=== PATIENT | female | born 1945 | race African-American/Black ===

== ENCOUNTER 2016-12-14 15:40 | Emergency (ER) | payer MEDICARE, MEDICAID ==
[~2016-12-14] VITALS: Ht 180.3 cm; Wt 128.0 kg
[~2016-12-14 15:40] MED LIST: AMA4 PO; ARIP30TA3 PO; CARB200T6 PO; CHOL200035 PO; CLOP75TA33 PO; CYAN10009 PO; DIPH50CA4 PO; EZET10TA PO; HYDR25TA PO; INSU100I22 SQ; INSU200I SQ; LEVO50TA70 PO; LEVO5TAB13 PO; LOSA100T11 PO; MIRA25TA PO; NEBI10TA2 PO; OMEG1CAP17 PO; POTA20TA82 PO; RISP4; ROSU20TA28 PO; SPIR25TA4 PO; TOPI200T15 PO; TRAZ-132 PO
[2016-12-14] MEDS ORDERED: ONDANSETRON 4MG ODT PO ONE (20:15)
[2016-12-14] MEDS ORDERED: HYDROCODONE/ACETAMINOPHEN 5/325MG TABLET PO ONE (20:15)
[2016-12-15 00:56] VITALS: BP 132/64
== END 2016-12-15 00:57 | disposition home or self-care (01) ==
LOC: ER 19:54
DX: M16.11 Unilateral primary osteoarthritis, right hip (principal); E11.9 Type 2 diabetes mellitus without complications; I10 Essential (primary) hypertension; E78.00 Pure hypercholesterolemia, unspecified; E03.9 Hypothyroidism, unspecified; Z79.4 Long term (current) use of insulin; Z90.49 Acquired absence of other specified parts of digestive tract; Z88.0 Allergy status to penicillin; Z88.6 Allergy status to analgesic agent; Z88.2 Allergy status to sulfonamides; Z85.9 Personal history of malignant neoplasm, unspecified; Z98.890 Other specified postprocedural states; W06.XXXA Fall from bed, initial encounter; Y92.013 Bedroom of single-family (private) house as the place of occurrence of the external cause
CPT/HCPCS: 73502; 73700; 99284; Q0162

== ENCOUNTER 2017-01-10 20:25 | Emergency (ER) | payer MEDICARE, MEDICAID ==
[~2017-01-10] VITALS: Ht 160 cm; Wt 124.0 kg
[2017-01-10] MEDS ORDERED: LIDOCAINE HCL 1% 20ML VIAL (Pyxis) INJ ONE (23:23)
[2017-01-10] MEDS ORDERED: LIDOCAINE HCL 1% 20ML VIAL (Pyxis) INJ MC ONE (23:45)
[2017-01-11 00:04] VITALS: BP 133/77
== END 2017-01-11 00:08 | disposition home or self-care (01) ==
LOC: ER 20:27
DX: T82.838A Hemorrhage due to vascular prosthetic devices, implants and grafts, initial encounter (principal); Y82.8 Other medical devices associated with adverse incidents; C50.911 Malignant neoplasm of unspecified site of right female breast; Y92.098 Other place in other non-institutional residence as the place of occurrence of the external cause; I10 Essential (primary) hypertension; E11.9 Type 2 diabetes mellitus without complications; E78.00 Pure hypercholesterolemia, unspecified; Z98.890 Other specified postprocedural states; Z90.49 Acquired absence of other specified parts of digestive tract; Z88.2 Allergy status to sulfonamides; Z88.6 Allergy status to analgesic agent; Z88.7 Allergy status to serum and vaccine; Z91.018 Allergy to other foods
CPT/HCPCS: 12002; 99283; J3490

== ENCOUNTER 2017-01-26 05:20 | Emergency (ER) | payer MEDICARE, MEDICAID ==
[~2017-01-26 05:20] MED LIST changes: +ARIP30TA2 PO; -ARIP30TA3 PO; -LOSA100T11 PO; +LOSA100T3 PO
[2017-01-26] MEDS ORDERED: ONDANSETRON HCL 4MG/2ML VIAL IV STA (07:33)
[2017-01-26] MEDS ORDERED: MORPHINE SULFATE 4 MG/ML CPJ (NOT FOR IM USE) IV STA (07:33)
[2017-01-26] MEDS ORDERED: SODIUM CHLORIDE 0.9% 1,000 ML IV ONE (07:33)
[2017-01-26 07:54] LABS: CLARITY URINE CLEAR (CLEAR); COLOR URINE YELLOW (YELLOW); GLUCOSE URINE NEGATIVE (NEGATIVE); KETONES URINE NEGATIVE (NEGATIVE); LEUKOCYTE ESTERASE URINE 1+ (NEGATIVE); NITRITE URINE NEGATIVE (NEGATIVE); OCCULT BLOOD URINE NEGATIVE (NEGATIVE); PROTEIN URINE NEGATIVE (NEGATIVE); SPECIFIC GRAVITY URINE 1.014 (1.005-1.030); UROBILINOGEN URINE 0.2 E.U./dL (0.2-1.0)
[2017-01-26 08:01] LABS: BASOPHILS % 0.2 % (0.0-2.0); EOSINOPHILS % 2.1 % (0.0-5.0); HEMATOCRIT. 32.8 % (36.0-48.0); HEMOGLOBIN. 11.1 g/dL (12.0-16.0); LYMPHOCYTES % 27.8 % (20.0-50.0); MEAN CORPUSCULAR HEMOGLOBIN 30.6 pg (28.0-32.0); MEAN CORPUSCULAR VOLUME 90.2 fL (81.0-99.0); MEAN PLATELET VOLUME 9.7 fl (7.4-10.4); MONOCYTES % 10.8 % (2.0-8.0); NEUTROPHILS % 59.1 % (40.0-76.0); PLATELET 127 x1000/uL (130-400); RED BLOOD CELL COUNT 3.63 mill/uL (4.2-5.4); RED CELL DISTRIBUTION WIDTH 17.4 % (11.6-14.6)
[2017-01-26 08:13] LABS: CARBON DIOXIDE 26 mEq/L (21-32); CHLORIDE 103 mEq/L (98-107)
[2017-01-26] MEDS ORDERED: LEVOFLOXACIN 750MG PREMIX 150 ML IV ONE (10:00)
[2017-01-26 12:30] VITALS: BP 138/67
== END 2017-01-26 13:11 | disposition home or self-care (01) ==
LOC: ER 05:20
DX: N12 Tubulo-interstitial nephritis, not specified as acute or chronic (principal); N39.0 Urinary tract infection, site not specified; E11.9 Type 2 diabetes mellitus without complications; I10 Essential (primary) hypertension; E78.00 Pure hypercholesterolemia, unspecified; Z88.0 Allergy status to penicillin; Z88.6 Allergy status to analgesic agent; Z88.2 Allergy status to sulfonamides; Z79.899 Other long term (current) drug therapy
CPT/HCPCS: 36415; 74176; 80053; 81001; 83690; 85025; 96365; 96375; 99285; J1956; J2270; J2405; J7030

== ENCOUNTER 2017-03-21 06:52 | Emergency (ER) | payer MEDICARE, MEDICAID ==
[~2017-03-21] VITALS: Ht 160 cm; Wt 122.0 kg
[2017-03-21] MEDS ORDERED: SODIUM CHLORIDE 0.9% 1,000 ML IV ONE (08:07)
[2017-03-21] MEDS ORDERED: MORPHINE SULFATE 4 MG/ML CPJ (NOT FOR IM USE) IV STA (08:07)
[2017-03-21] MEDS ORDERED: ONDANSETRON HCL 4MG/2ML VIAL IV STA (08:07)
[2017-03-21 08:52] LABS: HEMOGLOBIN. 9.4 g/dL (12.0-16.0); MEAN CORPUSCULAR HEMOGLOBIN 30.9 pg (28.0-32.0); MEAN PLATELET VOLUME 9.2 fl (7.4-10.4); PLATELET 207 x1000/uL (130-400); RED BLOOD CELL COUNT 3.05 mill/uL (4.2-5.4); RED CELL DISTRIBUTION WIDTH 19.8 % (11.6-14.6)
[2017-03-21 08:58] LABS: CHLORIDE 104 mEq/L (98-107)
[2017-03-21 09:00] LABS: PARTIAL THROMBOPLASTIN TIME 29.8 sec (24.0-34.0); PROTHROMBIN TIME 10.5 sec
[2017-03-21 09:06] LABS: CARBON DIOXIDE 24 mEq/L (21-32)
[2017-03-21 09:23] LABS: NUCLEATED RED BLOOD CELLS 3 /100 WBC; PLATELET ESTIMATE NORMAL
[2017-03-21 11:37] VITALS: BP 148/60
== END 2017-03-21 11:38 | disposition home or self-care (01) ==
LOC: ER 07:41
DX: M16.11 Unilateral primary osteoarthritis, right hip (principal); I10 Essential (primary) hypertension; E11.9 Type 2 diabetes mellitus without complications; D25.9 Leiomyoma of uterus, unspecified; Z88.0 Allergy status to penicillin; Z88.2 Allergy status to sulfonamides; Z88.6 Allergy status to analgesic agent; Z88.7 Allergy status to serum and vaccine; Z88.5 Allergy status to narcotic agent; Z91.018 Allergy to other foods; Z79.4 Long term (current) use of insulin
CPT/HCPCS: 36415; 71010; 72192; 73502; 80053; 85025; 85610; 85730; 96361; 96374; 96375; 99285; J2270; J2405; J7030; 73700

== ENCOUNTER 2017-06-21 22:10 | Emergency (ER) | payer MEDICARE, MEDICAID ==
[~2017-06-21] VITALS: Ht 160 cm; Wt 122.0 kg
[~2017-06-21 22:10] MED LIST changes: +CHOL200010 PO; -CHOL200035 PO; -EZET10TA PO; +LEVO50TA PO; -LEVO50TA70 PO; +ZET10 PO
[2017-06-22] MEDS ORDERED: IBUPROFEN 600MG TABLET PO STA (01:27)
[2017-06-22] MEDS ORDERED: ACETAMINOPHEN 325MG TABLET PO ONE (01:30)
[2017-06-22 01:46] LABS: BASOPHILS % 0.3 % (0.0-2.0); EOSINOPHILS % 0.4 % (0.0-5.0); HEMATOCRIT. 36.6 % (36.0-48.0); HEMOGLOBIN. 11.9 g/dL (12.0-16.0); LYMPHOCYTES % 20.1 % (20.0-50.0); MEAN CORPUSCULAR HEMOGLOBIN 32.8 pg (28.0-32.0); MEAN CORPUSCULAR VOLUME 100.3 fL (81.0-99.0); MEAN PLATELET VOLUME 10.3 fl (7.4-10.4); MONOCYTES % 12.1 % (2.0-8.0); NEUTROPHILS % 67.1 % (40.0-76.0); PLATELET 167 x1000/uL (130-400); RED BLOOD CELL COUNT 3.65 mill/uL (4.2-5.4); RED CELL DISTRIBUTION WIDTH 17.6 % (11.6-14.6)
[2017-06-22 01:51] LABS: CHLORIDE 96 mEq/L (98-107)
[2017-06-22 02:00] LABS: CARBON DIOXIDE 33 mEq/L (21-32)
[2017-06-22 02:41] LABS: CLARITY URINE CLEAR (CLEAR); COLOR URINE YELLOW (YELLOW); GLUCOSE URINE 3+ (NEGATIVE); KETONES URINE NEGATIVE (NEGATIVE); LEUKOCYTE ESTERASE URINE TRACE (NEGATIVE); NITRITE URINE NEGATIVE (NEGATIVE); OCCULT BLOOD URINE NEGATIVE (NEGATIVE); PROTEIN URINE NEGATIVE (NEGATIVE); SPECIFIC GRAVITY URINE 1.013 (1.005-1.030); UROBILINOGEN URINE 0.2 E.U./dL (0.2-1.0)
[2017-06-22] MEDS ORDERED: SODIUM CHLORIDE 0.9% 1,000 ML IV ONE (03:49)
[2017-06-22 09:05] VITALS: BP 134/53
[2017-07-01] MEDS ORDERED: ARIP30TA10 (10:56)
== END 2017-06-22 09:16 | disposition home or self-care (01) ==
LOC: ER 22:46
DX: S70.01XA Contusion of right hip, initial encounter (principal); E11.65 Type 2 diabetes mellitus with hyperglycemia; I10 Essential (primary) hypertension; E78.00 Pure hypercholesterolemia, unspecified; J45.909 Unspecified asthma, uncomplicated; Z79.4 Long term (current) use of insulin; Z88.0 Allergy status to penicillin; Z88.2 Allergy status to sulfonamides; Z88.6 Allergy status to analgesic agent; Z91.018 Allergy to other foods; W19.XXXA Unspecified fall, initial encounter; Y93.89 Activity, other specified; Y92.89 Other specified places as the place of occurrence of the external cause; Y99.8 Other external cause status
CPT/HCPCS: 36415; 72192; 73700; 80053; 81001; 85025; 93005; 96360; 99285; J7030

== ENCOUNTER 2017-07-09 16:30 | Inpatient (IN) | payer MEDICARE, MEDICAID ==
[~2017-07-09] VITALS: Ht 167.6 cm; Wt 109.3 kg
[~2017-07-09 16:30] MED LIST changes: +ARIP30TA10
[2017-07-09 17:15] VITALS: BP 125/65
[2017-07-09] MEDS ORDERED: DEXTROSE 50% WATER 50ML SYRINGE IV PRN ×2 (17:15→17:30)
[2017-07-09] MEDS ORDERED: INSULIN LISPRO 100 UNITS/ML SUBCUT SCH ×2 (17:30→21:00)
[2017-07-09] MEDS ORDERED: IPRATROPIUM/ALBUTEROL 0.5-3(2.5)MG/3ML NEB HHN PRN (17:30)
[2017-07-09] MEDS ORDERED: CLONIDINE 0.2MG TABLET PO PRN (17:30)
[2017-07-09] MEDS ORDERED: RACEPINEPHRINE 2.25% 0.5ML NEB VIAL HHN PRN (17:30)
[2017-07-09 19:11] LABS: HEMATOCRIT. 29.8 % (36.0-48.0); HEMOGLOBIN. 9.9 g/dL (12.0-16.0); MEAN CORPUSCULAR HEMOGLOBIN 32.3 pg (28.0-32.0); MEAN CORPUSCULAR VOLUME 97.5 fL (81.0-99.0); MEAN PLATELET VOLUME 9.9 fl (7.4-10.4); PLATELET 175 x1000/uL (130-400); RED BLOOD CELL COUNT 3.06 mill/uL (4.2-5.4); RED CELL DISTRIBUTION WIDTH 17.3 % (11.6-14.6)
[2017-07-09 19:45] LABS: PLATELET ESTIMATE NORMAL
[2017-07-09 19:52] LABS: PREALBUMIN 28.6 mg/dL (20.0-40.0)
[2017-07-09 20:00] VITALS: BP 129/57
[2017-07-09 20:10] VITALS: BP 129/57
[2017-07-09] MEDS: IPRATROPIUM/ALBUTEROL 0.5-3(2.5)MG/3ML NEB HHN SCH (20:47)
[2017-07-09] MEDS: BLOOD SUGAR DIAGNOSTIC STRIP TEST SCH (21:00)
[2017-07-09] MEDS ORDERED: BLOOD SUGAR DIAGNOSTIC STRIP TEST SCH (21:00)
[2017-07-09] MEDS ORDERED: INSULIN DETEMIR UD 100 UNITS/ML SYR SUBCUT SCH ×2 (21:45→22:00)
[2017-07-09] MEDS: METOPROLOL TARTRATE 25MG TABLET PO SCH (22:01)
[2017-07-09] MEDS: ISOSORB DINIT/HYDRALAZINE HCL 20/37.5MG TABLET PO SCH (22:01)
[2017-07-09] MEDS: TOPIRAMATE 100MG TABLET PO SCH (22:01)
[2017-07-09] MEDS: ENOXAPARIN 30MG/0.3ML SYR SUBCUT SCH (22:06)
[2017-07-10] MEDS: IPRATROPIUM/ALBUTEROL 0.5-3(2.5)MG/3ML NEB HHN SCH ×6 (00:42→20:49)
[2017-07-10] MEDS: ISOSORB DINIT/HYDRALAZINE HCL 20/37.5MG TABLET PO SCH ×3 (05:13→21:20)
[2017-07-10] MEDS: BLOOD SUGAR DIAGNOSTIC STRIP TEST SCH ×4 (06:36→21:23)
[2017-07-10] MEDS: INSULIN LISPRO (LOW DOSE) 100 UNITS/ML SUBCUT SCH ×3 (06:45→17:00)
[2017-07-10] MEDS ORDERED: INSULIN LISPRO 100 UNITS/ML SUBCUT SCH (07:00)
[2017-07-10 07:57] VITALS: BP 168/72
[2017-07-10] MEDS: PANTOPRAZOLE SODIUM 40 MG/VIAL IV SCH (08:52)
[2017-07-10] MEDS: POTASSIUM CHLORIDE 20MEQ TABLET SR PO SCH (08:53)
[2017-07-10] MEDS: METOPROLOL TARTRATE 25MG TABLET PO SCH ×2 (08:53→20:49)
[2017-07-10] MEDS: LINAGLIPTIN 5MG TABLET PO SCH (08:53)
[2017-07-10] MEDS: ARIPIPRAZOLE 10MG TABLET PO SCH (08:53)
[2017-07-10] MEDS: PREDNISONE 20MG TABLET PO SCH (08:54)
[2017-07-10] MEDS: TOPIRAMATE 100MG TABLET PO SCH ×2 (08:54→20:49)
[2017-07-10] MEDS: CARBAMAZEPINE 100MG TABLET CHEW PO SCH ×3 (08:54→17:08)
[2017-07-10] MEDS: ENOXAPARIN 30MG/0.3ML SYR SUBCUT SCH ×2 (08:55→20:49)
[2017-07-10] MEDS ORDERED: LOSARTAN POTASSIUM 50 MG TABLET PO SCH (09:00)
[2017-07-10] MEDS ORDERED: INSULIN DETEMIR UD 100 UNITS/ML SYR SUBCUT SCH (10:00)
[2017-07-10] MEDS: ACETAMINOPHEN 325MG TABLET PO PRN (11:46)
[2017-07-10] MEDS: INSULIN LISPRO 100 UNITS/ML SUBCUT SCH ×2 (13:55→17:00)
[2017-07-10 20:00] VITALS: BP 106/47
[2017-07-10] MEDS: INSULIN DETEMIR UD 100 UNITS/ML SYR SUBCUT SCH (21:28)
[2017-07-10] MEDS ORDERED: CLONIDINE 0.1MG TABLET PO PRN (22:30)
[2017-07-11] MEDS: IPRATROPIUM/ALBUTEROL 0.5-3(2.5)MG/3ML NEB HHN SCH ×6 (01:05→19:56)
[2017-07-11] MEDS: ISOSORB DINIT/HYDRALAZINE HCL 20/37.5MG TABLET PO SCH ×3 (05:48→22:56)
[2017-07-11] MEDS: BLOOD SUGAR DIAGNOSTIC STRIP TEST SCH ×4 (05:51→21:53)
[2017-07-11 06:55] LABS: MEAN CORPUSCULAR HEMOGLOBIN 32.1 pg (28.0-32.0); MEAN CORPUSCULAR VOLUME 96.5 fL (81.0-99.0); MEAN PLATELET VOLUME 9.5 fl (7.4-10.4); PLATELET 203 x1000/uL (130-400); RED BLOOD CELL COUNT 3.11 mill/uL (4.2-5.4); RED CELL DISTRIBUTION WIDTH 17.6 % (11.6-14.6)
[2017-07-11 07:07] LABS: CARBON DIOXIDE 26 mEq/L (21-32); CHLORIDE 102 mEq/L (98-107)
[2017-07-11] MEDS: INSULIN LISPRO 100 UNITS/ML SUBCUT SCH ×3 (07:54→17:51)
[2017-07-11] MEDS: INSULIN LISPRO (LOW DOSE) 100 UNITS/ML SUBCUT SCH ×3 (07:55→17:50)
[2017-07-11 08:00] VITALS: BP 152/72
[2017-07-11] MEDS: CARBAMAZEPINE 100MG TABLET CHEW PO SCH ×2 (08:39→12:09)
[2017-07-11] MEDS: METOPROLOL TARTRATE 25MG TABLET PO SCH ×2 (08:39→21:00)
[2017-07-11] MEDS: ENOXAPARIN 30MG/0.3ML SYR SUBCUT SCH ×2 (08:39→21:54)
[2017-07-11] MEDS: POTASSIUM CHLORIDE 20MEQ TABLET SR PO SCH (08:39)
[2017-07-11] MEDS: LINAGLIPTIN 5MG TABLET PO SCH (08:40)
[2017-07-11] MEDS: TOPIRAMATE 100MG TABLET PO SCH ×2 (08:40→21:54)
[2017-07-11] MEDS: LOSARTAN POTASSIUM 25 MG TABLET PO SCH (08:40)
[2017-07-11] MEDS: PANTOPRAZOLE SODIUM 40 MG/VIAL IV SCH (08:40)
[2017-07-11] MEDS: ARIPIPRAZOLE 10MG TABLET PO SCH (08:40)
[2017-07-11] MEDS: PREDNISONE 20MG TABLET PO SCH (08:40)
[2017-07-11] MEDS: ACETAMINOPHEN 325MG TABLET PO PRN (08:55)
[2017-07-11] MEDS: INSULIN DETEMIR UD 100 UNITS/ML SYR SUBCUT SCH ×2 (09:45→22:03)
[2017-07-11 10:54] LABS: PLATELET ESTIMATE NORMAL
[2017-07-11] MEDS: BUDESONIDE 0.5MG/2ML NEB HHN SCH ×2 (12:29→19:56)
[2017-07-11 12:30] VITALS: BP 144/78
[2017-07-11] MEDS: IBUPROFEN 400MG TABLET PO PRN (12:37)
[2017-07-11 13:25] VITALS: BP 149/75
[2017-07-11 14:57] LABS: CLARITY URINE CLOUDY (CLEAR); COLOR URINE YELLOW (YELLOW); GLUCOSE URINE NEGATIVE (NEGATIVE); KETONES URINE NEGATIVE (NEGATIVE); LEUKOCYTE ESTERASE URINE 3+ (NEGATIVE); NITRITE URINE NEGATIVE (NEGATIVE); OCCULT BLOOD URINE NEGATIVE (NEGATIVE); PROTEIN URINE NEGATIVE (NEGATIVE); UROBILINOGEN URINE 0.2 E.U./dL (0.2-1.0)
[2017-07-11] MEDS: CARBAMAZEPINE 200MG TABLET PO SCH (16:23)
[2017-07-11 20:00] VITALS: BP 122/60
[2017-07-11] MEDS: MUPIROCIN 2% OINT 22GM NS SCH (22:27)
[2017-07-12] MEDS: IPRATROPIUM/ALBUTEROL 0.5-3(2.5)MG/3ML NEB HHN SCH ×6 (00:23→20:38)
[2017-07-12] MEDS: METOPROLOL TARTRATE 25MG TABLET PO SCH ×3 (03:02→21:14)
[2017-07-12] MEDS: ISOSORB DINIT/HYDRALAZINE HCL 20/37.5MG TABLET PO SCH ×3 (06:08→22:08)
[2017-07-12] MEDS: BLOOD SUGAR DIAGNOSTIC STRIP TEST SCH ×4 (06:08→21:14)
[2017-07-12] MEDS: INSULIN LISPRO (LOW DOSE) 100 UNITS/ML SUBCUT SCH ×3 (06:09→18:15)
[2017-07-12 06:55] LABS: HEMATOCRIT. 29.6 % (36.0-48.0); HEMOGLOBIN. 9.7 g/dL (12.0-16.0); MEAN CORPUSCULAR HEMOGLOBIN 31.9 pg (28.0-32.0); MEAN CORPUSCULAR VOLUME 97.7 fL (81.0-99.0); MEAN PLATELET VOLUME 9.4 fl (7.4-10.4); PLATELET 198 x1000/uL (130-400); RED BLOOD CELL COUNT 3.03 mill/uL (4.2-5.4); RED CELL DISTRIBUTION WIDTH 17.6 % (11.6-14.6)
[2017-07-12 08:00] VITALS: BP 135/71
[2017-07-12 08:07] LABS: FOLIC ACID (FOLATE) SERUM 6.5 ng/mL (>5.38)
[2017-07-12 08:24] LABS: CARBON DIOXIDE 25 mEq/L (21-32); CHLORIDE 102 mEq/L (98-107); HDL CHOLESTEROL 33 mg/dL (40-59); LDL CHOLESTEROL 106 mg/dL (5-100); PHOSPHORUS 3.7 mg/dL (2.5-4.9); TOTAL IRON BINDING CAPACITY 166 ug/dL (250-450)
[2017-07-12] MEDS: TOPIRAMATE 100MG TABLET PO SCH ×2 (09:07→21:14)
[2017-07-12] MEDS: LINAGLIPTIN 5MG TABLET PO SCH (09:07)
[2017-07-12] MEDS: POTASSIUM CHLORIDE 20MEQ TABLET SR PO SCH (09:07)
[2017-07-12] MEDS: ARIPIPRAZOLE 10MG TABLET PO SCH (09:07)
[2017-07-12] MEDS: IBUPROFEN 400MG TABLET PO PRN (09:08)
[2017-07-12] MEDS: FAMOTIDINE 20MG TABLET PO SCH ×2 (09:09→18:11)
[2017-07-12] MEDS: ENOXAPARIN 30MG/0.3ML SYR SUBCUT SCH ×2 (09:09→21:15)
[2017-07-12] MEDS: CARBAMAZEPINE 200MG TABLET PO SCH ×3 (09:09→18:11)
[2017-07-12] MEDS: LOSARTAN POTASSIUM 25 MG TABLET PO SCH (09:09)
[2017-07-12] MEDS: MUPIROCIN 2% OINT 22GM NS SCH ×2 (09:09→21:13)
[2017-07-12] MEDS: INSULIN LISPRO 100 UNITS/ML SUBCUT SCH ×2 (09:19→18:15)
[2017-07-12] MEDS ORDERED: POTASSIUM CHLORIDE 10MEQ TABLET SR PO NR (09:30)
[2017-07-12] MEDS ORDERED: DIPHENHYDRAMINE 50MG/ML VIAL IV PRN (09:45)
[2017-07-12] MEDS: INSULIN DETEMIR UD 100 UNITS/ML SYR SUBCUT SCH ×2 (10:12→22:09)
[2017-07-12 12:45] VITALS: BP 113/60
[2017-07-12] MEDS: BUDESONIDE 0.5MG/2ML NEB HHN SCH ×2 (13:03→20:39)
[2017-07-12] MEDS ORDERED: LEVOFLOXACIN 500MG TABLET PO NR (13:45)
[2017-07-12 13:58] LABS: NUCLEATED RED BLOOD CELLS 1 /100 WBC; PLATELET ESTIMATE NORMAL
[2017-07-12 20:00] VITALS: BP 151/69
[2017-07-12] MEDS: ATORVASTATIN CALCIUM 10MG TABLET PO SCH (21:14)
[2017-07-13] MEDS: IPRATROPIUM/ALBUTEROL 0.5-3(2.5)MG/3ML NEB HHN SCH ×6 (00:51→21:23)
[2017-07-13] MEDS: BLOOD SUGAR DIAGNOSTIC STRIP TEST SCH ×4 (06:20→21:18)
[2017-07-13] MEDS: ISOSORB DINIT/HYDRALAZINE HCL 20/37.5MG TABLET PO SCH ×3 (06:21→22:00)
[2017-07-13 07:46] VITALS: BP 144/65
[2017-07-13] MEDS: ACETAMINOPHEN 325MG TABLET PO PRN (07:52)
[2017-07-13] MEDS: INSULIN LISPRO (LOW DOSE) 100 UNITS/ML SUBCUT SCH ×3 (07:54→17:51)
[2017-07-13] MEDS: INSULIN LISPRO 100 UNITS/ML SUBCUT SCH ×3 (07:55→17:49)
[2017-07-13] MEDS: BUDESONIDE 0.5MG/2ML NEB HHN SCH ×2 (07:56→21:00)
[2017-07-13] MEDS: ARIPIPRAZOLE 10MG TABLET PO SCH (08:46)
[2017-07-13] MEDS: MUPIROCIN 2% OINT 22GM NS SCH ×2 (08:46→21:16)
[2017-07-13] MEDS: POTASSIUM CHLORIDE 10MEQ TABLET SR PO SCH (08:46)
[2017-07-13] MEDS: ENOXAPARIN 30MG/0.3ML SYR SUBCUT SCH ×2 (08:47→21:19)
[2017-07-13] MEDS: CARBAMAZEPINE 200MG TABLET PO SCH ×3 (08:47→17:40)
[2017-07-13] MEDS: LINAGLIPTIN 5MG TABLET PO SCH (08:47)
[2017-07-13] MEDS: METOPROLOL TARTRATE 25MG TABLET PO SCH ×2 (08:47→21:16)
[2017-07-13] MEDS: FAMOTIDINE 20MG TABLET PO SCH ×2 (08:47→17:40)
[2017-07-13] MEDS: TOPIRAMATE 100MG TABLET PO SCH ×2 (08:47→21:16)
[2017-07-13] MEDS: LOSARTAN POTASSIUM 25 MG TABLET PO SCH (08:47)
[2017-07-13] MEDS ORDERED: INSULIN DETEMIR UD 100 UNITS/ML SYR SUBCUT SCH (10:00)
[2017-07-13] MEDS ORDERED: LEVOFLOXACIN 250MG TABLET PO SCH (11:00)
[2017-07-13] MEDS: LACTULOSE 20G/30ML UDC PO SCH ×4 (13:26→21:16)
[2017-07-13] MEDS: DOCUSATE SODIUM 100MG CAPSULE PO SCH (17:40)
[2017-07-13 20:10] VITALS: BP 110/62
[2017-07-13] MEDS: POLYETHYLENE GLYCOL 3350 (17GM) 1 DOSE PACK PO SCH (21:00)
[2017-07-13] MEDS: ATORVASTATIN CALCIUM 10MG TABLET PO SCH (21:16)
[2017-07-13] MEDS: NITROFURANTOIN 100MG M/M CAPSULE PO SCH (21:16)
[2017-07-13] MEDS: INSULIN DETEMIR UD 100 UNITS/ML SYR SUBCUT SCH (21:24)
[2017-07-14] MEDS: IPRATROPIUM/ALBUTEROL 0.5-3(2.5)MG/3ML NEB HHN SCH ×6 (00:56→20:47)
[2017-07-14] MEDS: BLOOD SUGAR DIAGNOSTIC STRIP TEST SCH ×4 (06:03→21:40)
[2017-07-14] MEDS: ISOSORB DINIT/HYDRALAZINE HCL 20/37.5MG TABLET PO SCH ×3 (06:07→21:42)
[2017-07-14 07:00] VITALS: BP 135/57
[2017-07-14 07:13] LABS: HEMATOCRIT. 28.1 % (36.0-48.0); HEMOGLOBIN. 9.3 g/dL (12.0-16.0); MEAN CORPUSCULAR HEMOGLOBIN 32.4 pg (28.0-32.0); MEAN CORPUSCULAR VOLUME 97.8 fL (81.0-99.0); MEAN PLATELET VOLUME 9.4 fl (7.4-10.4); PLATELET 194 x1000/uL (130-400); RED BLOOD CELL COUNT 2.88 mill/uL (4.2-5.4); RED CELL DISTRIBUTION WIDTH 18.2 % (11.6-14.6)
[2017-07-14] MEDS: BUDESONIDE 0.5MG/2ML NEB HHN SCH (07:49)
[2017-07-14 08:04] LABS: CARBON DIOXIDE 27 mEq/L (21-32); CHLORIDE 102 mEq/L (98-107)
[2017-07-14] MEDS: INSULIN LISPRO 100 UNITS/ML SUBCUT SCH ×3 (08:09→17:25)
[2017-07-14] MEDS: INSULIN LISPRO (LOW DOSE) 100 UNITS/ML SUBCUT SCH ×3 (08:10→17:00)
[2017-07-14] MEDS: ENOXAPARIN 30MG/0.3ML SYR SUBCUT SCH ×2 (08:13→21:43)
[2017-07-14] MEDS: TOPIRAMATE 100MG TABLET PO SCH ×2 (08:14→21:42)
[2017-07-14] MEDS: ARIPIPRAZOLE 10MG TABLET PO SCH (08:14)
[2017-07-14] MEDS: DOCUSATE SODIUM 100MG CAPSULE PO SCH ×2 (08:14→16:35)
[2017-07-14] MEDS: FAMOTIDINE 20MG TABLET PO SCH ×2 (08:14→16:35)
[2017-07-14] MEDS: NITROFURANTOIN 100MG M/M CAPSULE PO SCH ×2 (08:14→21:42)
[2017-07-14] MEDS: CARBAMAZEPINE 200MG TABLET PO SCH ×3 (08:15→16:35)
[2017-07-14] MEDS: LINAGLIPTIN 5MG TABLET PO SCH (08:15)
[2017-07-14] MEDS: MUPIROCIN 2% OINT 22GM NS SCH ×2 (08:15→21:44)
[2017-07-14] MEDS: LOSARTAN POTASSIUM 25 MG TABLET PO SCH (08:15)
[2017-07-14] MEDS: POTASSIUM CHLORIDE 10MEQ TABLET SR PO SCH (08:15)
[2017-07-14] MEDS: METOPROLOL TARTRATE 25MG TABLET PO SCH ×2 (08:15→21:43)
[2017-07-14] MEDS: LACTULOSE 20G/30ML UDC PO SCH (08:24)
[2017-07-14] MEDS: IBUPROFEN 400MG TABLET PO PRN (09:12)
[2017-07-14 14:00] VITALS: BP 124/55
[2017-07-14 17:14] LABS: PLATELET ESTIMATE NORMAL
[2017-07-14 20:00] VITALS: BP 130/57
[2017-07-14] MEDS: POLYETHYLENE GLYCOL 3350 (17GM) 1 DOSE PACK PO SCH (21:00)
[2017-07-14] MEDS: ATORVASTATIN CALCIUM 10MG TABLET PO SCH (21:41)
[2017-07-14] MEDS: INSULIN DETEMIR UD 100 UNITS/ML SYR SUBCUT SCH (21:45)
[2017-07-15] MEDS: IPRATROPIUM/ALBUTEROL 0.5-3(2.5)MG/3ML NEB HHN SCH ×6 (00:04→23:49)
[2017-07-15] MEDS: ISOSORB DINIT/HYDRALAZINE HCL 20/37.5MG TABLET PO SCH ×3 (06:28→21:44)
[2017-07-15] MEDS: BLOOD SUGAR DIAGNOSTIC STRIP TEST SCH ×4 (06:28→21:06)
[2017-07-15] MEDS: INSULIN LISPRO 100 UNITS/ML SUBCUT SCH ×3 (06:30→17:39)
[2017-07-15] MEDS: INSULIN LISPRO (LOW DOSE) 100 UNITS/ML SUBCUT SCH ×3 (06:31→16:40)
[2017-07-15 06:55] LABS: BASOPHILS % 0.2 % (0.0-2.0); EOSINOPHILS % 3.1 % (0.0-5.0); HEMATOCRIT. 28.6 % (36.0-48.0); HEMOGLOBIN. 9.4 g/dL (12.0-16.0); LYMPHOCYTES % 17.3 % (20.0-50.0); MEAN CORPUSCULAR HEMOGLOBIN 32.4 pg (28.0-32.0); MEAN CORPUSCULAR VOLUME 98.8 fL (81.0-99.0); MEAN PLATELET VOLUME 9.5 fl (7.4-10.4); MONOCYTES % 7.7 % (2.0-8.0); NEUTROPHILS % 71.7 % (40.0-76.0); PLATELET 210 x1000/uL (130-400); RED CELL DISTRIBUTION WIDTH 18.3 % (11.6-14.6)
[2017-07-15 07:24] LABS: CARBON DIOXIDE 23 mEq/L (21-32); CHLORIDE 102 mEq/L (98-107)
[2017-07-15 08:00] VITALS: BP 159/69
[2017-07-15] MEDS: ENOXAPARIN 30MG/0.3ML SYR SUBCUT SCH ×2 (08:15→20:58)
[2017-07-15] MEDS: MUPIROCIN 2% OINT 22GM NS SCH ×2 (08:15→20:59)
[2017-07-15] MEDS: ARIPIPRAZOLE 10MG TABLET PO SCH (08:16)
[2017-07-15] MEDS: POTASSIUM CHLORIDE 10MEQ TABLET SR PO SCH (08:16)
[2017-07-15] MEDS: TOPIRAMATE 100MG TABLET PO SCH ×2 (08:16→20:58)
[2017-07-15] MEDS: FAMOTIDINE 20MG TABLET PO SCH ×2 (08:17→16:39)
[2017-07-15] MEDS: DOCUSATE SODIUM 100MG CAPSULE PO SCH ×3 (08:17→16:10)
[2017-07-15] MEDS: LOSARTAN POTASSIUM 25 MG TABLET PO SCH (08:17)
[2017-07-15] MEDS: CARBAMAZEPINE 200MG TABLET PO SCH ×3 (08:17→16:39)
[2017-07-15] MEDS: LINAGLIPTIN 5MG TABLET PO SCH (08:18)
[2017-07-15] MEDS: NITROFURANTOIN 100MG M/M CAPSULE PO SCH ×2 (08:18→20:58)
[2017-07-15] MEDS: METOPROLOL TARTRATE 25MG TABLET PO SCH ×2 (08:18→20:59)
[2017-07-15] MEDS: IBUPROFEN 400MG TABLET PO PRN (09:17)
[2017-07-15] MEDS: LACTULOSE 20G/30ML UDC PO SCH ×3 (11:30→16:09)
[2017-07-15 17:11] LABS: 25-HYDROXY VITAMIN D3 39 ng/mL (.)
[2017-07-15 20:00] VITALS: BP 158/65
[2017-07-15] MEDS: ATORVASTATIN CALCIUM 10MG TABLET PO SCH (20:58)
[2017-07-15] MEDS: POLYETHYLENE GLYCOL 3350 (17GM) 1 DOSE PACK PO SCH (20:59)
[2017-07-15] MEDS: INSULIN DETEMIR UD 100 UNITS/ML SYR SUBCUT SCH (21:44)
[2017-07-16] MEDS: ISOSORB DINIT/HYDRALAZINE HCL 20/37.5MG TABLET PO SCH ×3 (05:11→21:28)
[2017-07-16] MEDS: IPRATROPIUM/ALBUTEROL 0.5-3(2.5)MG/3ML NEB HHN SCH ×5 (05:33→19:32)
[2017-07-16] MEDS: BLOOD SUGAR DIAGNOSTIC STRIP TEST SCH ×4 (06:49→21:28)
[2017-07-16 07:00] VITALS: BP 151/64
[2017-07-16] MEDS ORDERED: INSULIN LISPRO 100 UNITS/ML SUBCUT SCH (07:00)
[2017-07-16] MEDS: INSULIN LISPRO (LOW DOSE) 100 UNITS/ML SUBCUT SCH ×3 (07:53→16:53)
[2017-07-16] MEDS: INSULIN LISPRO 100 UNITS/ML SUBCUT SCH ×3 (07:53→17:28)
[2017-07-16] MEDS: ENOXAPARIN 30MG/0.3ML SYR SUBCUT SCH ×2 (08:02→21:28)
[2017-07-16] MEDS: MUPIROCIN 2% OINT 22GM NS SCH ×2 (08:02→21:26)
[2017-07-16] MEDS: LOSARTAN POTASSIUM 25 MG TABLET PO SCH (08:03)
[2017-07-16] MEDS: DOCUSATE SODIUM 100MG CAPSULE PO SCH ×2 (08:03→16:53)
[2017-07-16] MEDS: NITROFURANTOIN 100MG M/M CAPSULE PO SCH ×2 (08:03→21:27)
[2017-07-16] MEDS: TOPIRAMATE 100MG TABLET PO SCH ×2 (08:03→21:27)
[2017-07-16] MEDS: POTASSIUM CHLORIDE 10MEQ TABLET SR PO SCH (08:03)
[2017-07-16] MEDS: ARIPIPRAZOLE 10MG TABLET PO SCH (08:03)
[2017-07-16] MEDS: CARBAMAZEPINE 200MG TABLET PO SCH ×3 (08:03→16:53)
[2017-07-16] MEDS: FAMOTIDINE 20MG TABLET PO SCH ×2 (08:03→16:53)
[2017-07-16] MEDS: LINAGLIPTIN 5MG TABLET PO SCH (08:03)
[2017-07-16] MEDS: METOPROLOL TARTRATE 25MG TABLET PO SCH ×2 (08:04→21:27)
[2017-07-16 13:02] VITALS: BP 140/58
[2017-07-16] MEDS: LOSARTAN POTASSIUM 50 MG TABLET PO SCH (16:53)
[2017-07-16 20:00] VITALS: BP 142/63
[2017-07-16] MEDS: POLYETHYLENE GLYCOL 3350 (17GM) 1 DOSE PACK PO SCH (21:00)
[2017-07-16] MEDS: ATORVASTATIN CALCIUM 10MG TABLET PO SCH (21:27)
[2017-07-16] MEDS: INSULIN DETEMIR UD 100 UNITS/ML SYR SUBCUT SCH (21:35)
[2017-07-17] MEDS: IPRATROPIUM/ALBUTEROL 0.5-3(2.5)MG/3ML NEB HHN SCH ×6 (00:06→22:01)
[2017-07-17] MEDS: BLOOD SUGAR DIAGNOSTIC STRIP TEST SCH ×4 (06:29→21:40)
[2017-07-17] MEDS: INSULIN LISPRO 100 UNITS/ML SUBCUT SCH ×3 (06:31→17:42)
[2017-07-17] MEDS: INSULIN LISPRO (LOW DOSE) 100 UNITS/ML SUBCUT SCH ×3 (06:32→17:41)
[2017-07-17] MEDS: ISOSORB DINIT/HYDRALAZINE HCL 20/37.5MG TABLET PO SCH ×3 (06:33→21:40)
[2017-07-17 08:00] VITALS: BP 122/47
[2017-07-17] MEDS: ARIPIPRAZOLE 10MG TABLET PO SCH (08:32)
[2017-07-17] MEDS: DOCUSATE SODIUM 100MG CAPSULE PO SCH ×2 (08:33→17:14)
[2017-07-17] MEDS: METOPROLOL TARTRATE 25MG TABLET PO SCH ×2 (08:33→20:51)
[2017-07-17] MEDS: NITROFURANTOIN 100MG M/M CAPSULE PO SCH ×2 (08:33→20:50)
[2017-07-17] MEDS: CARBAMAZEPINE 200MG TABLET PO SCH ×3 (08:33→17:14)
[2017-07-17] MEDS: FAMOTIDINE 20MG TABLET PO SCH ×2 (08:33→17:14)
[2017-07-17] MEDS: TOPIRAMATE 100MG TABLET PO SCH ×2 (08:33→20:50)
[2017-07-17] MEDS: LOSARTAN POTASSIUM 50 MG TABLET PO SCH (08:34)
[2017-07-17] MEDS: ENOXAPARIN 30MG/0.3ML SYR SUBCUT SCH ×2 (08:34→20:50)
[2017-07-17] MEDS: LINAGLIPTIN 5MG TABLET PO SCH (08:34)
[2017-07-17] MEDS: POTASSIUM CHLORIDE 10MEQ TABLET SR PO SCH (08:34)
[2017-07-17 13:30] VITALS: BP 154/68
[2017-07-17 16:14] LABS: PHOSPHORUS 2.5 mg/dL (2.5-4.9)
[2017-07-17 20:00] VITALS: BP 146/57
[2017-07-17] MEDS: ATORVASTATIN CALCIUM 10MG TABLET PO SCH (20:50)
[2017-07-17] MEDS: POLYETHYLENE GLYCOL 3350 (17GM) 1 DOSE PACK PO SCH (20:51)
[2017-07-17] MEDS: INSULIN DETEMIR UD 100 UNITS/ML SYR SUBCUT SCH (21:42)
[2017-07-18] MEDS: IPRATROPIUM/ALBUTEROL 0.5-3(2.5)MG/3ML NEB HHN SCH ×6 (01:02→20:59)
[2017-07-18] MEDS: ISOSORB DINIT/HYDRALAZINE HCL 20/37.5MG TABLET PO SCH ×3 (05:36→23:17)
[2017-07-18] MEDS: BLOOD SUGAR DIAGNOSTIC STRIP TEST SCH ×4 (06:26→21:38)
[2017-07-18] MEDS: INSULIN LISPRO 100 UNITS/ML SUBCUT SCH ×3 (07:00→17:45)
[2017-07-18 07:12] LABS: BASOPHILS % 0.4 % (0.0-2.0); EOSINOPHILS % 2.5 % (0.0-5.0); HEMATOCRIT. 27.1 % (36.0-48.0); LYMPHOCYTES % 19.4 % (20.0-50.0); MEAN CORPUSCULAR HEMOGLOBIN 32.3 pg (28.0-32.0); MEAN CORPUSCULAR VOLUME 97.1 fL (81.0-99.0); MEAN PLATELET VOLUME 9.1 fl (7.4-10.4); MONOCYTES % 11.9 % (2.0-8.0); NEUTROPHILS % 65.8 % (40.0-76.0); PLATELET 191 x1000/uL (130-400); RED BLOOD CELL COUNT 2.79 mill/uL (4.2-5.4); RED CELL DISTRIBUTION WIDTH 18.3 % (11.6-14.6)
[2017-07-18 08:00] VITALS: BP 136/42
[2017-07-18] MEDS: NITROFURANTOIN 100MG M/M CAPSULE PO SCH ×2 (08:42→21:37)
[2017-07-18] MEDS: TOPIRAMATE 100MG TABLET PO SCH ×2 (08:43→21:37)
[2017-07-18] MEDS: POTASSIUM CHLORIDE 10MEQ TABLET SR PO SCH (08:44)
[2017-07-18] MEDS: CARBAMAZEPINE 200MG TABLET PO SCH ×3 (08:44→17:27)
[2017-07-18] MEDS: LINAGLIPTIN 5MG TABLET PO SCH (08:44)
[2017-07-18] MEDS: DOCUSATE SODIUM 100MG CAPSULE PO SCH ×2 (08:44→17:27)
[2017-07-18] MEDS: FAMOTIDINE 20MG TABLET PO SCH ×2 (08:44→17:27)
[2017-07-18] MEDS: METOPROLOL TARTRATE 25MG TABLET PO SCH ×2 (08:45→21:37)
[2017-07-18] MEDS: LOSARTAN POTASSIUM 50 MG TABLET PO SCH (08:45)
[2017-07-18] MEDS: ENOXAPARIN 30MG/0.3ML SYR SUBCUT SCH ×2 (08:46→21:39)
[2017-07-18] MEDS: INSULIN LISPRO (LOW DOSE) 100 UNITS/ML SUBCUT SCH ×3 (08:59→17:45)
[2017-07-18] MEDS: ACETAMINOPHEN 325MG TABLET PO PRN ×2 (10:33→23:17)
[2017-07-18] MEDS: POTASSIUM CHLORIDE 20MEQ TABLET SR PO SCH (13:35)
[2017-07-18] MEDS: IBUPROFEN 400MG TABLET PO PRN (17:29)
[2017-07-18] MEDS: ARIPIPRAZOLE 10MG TABLET PO SCH (17:29)
[2017-07-18] MEDS: LIDOCAINE 5% PATCH TOP SCH (19:55)
[2017-07-18 20:00] VITALS: BP 130/80
[2017-07-18] MEDS: POLYETHYLENE GLYCOL 3350 (17GM) 1 DOSE PACK PO SCH (21:00)
[2017-07-18] MEDS: ATORVASTATIN CALCIUM 10MG TABLET PO SCH (21:37)
[2017-07-18] MEDS: INSULIN DETEMIR UD 100 UNITS/ML SYR SUBCUT SCH (21:57)
[2017-07-19] MEDS: IPRATROPIUM/ALBUTEROL 0.5-3(2.5)MG/3ML NEB HHN SCH ×6 (00:12→20:28)
[2017-07-19] MEDS: BLOOD SUGAR DIAGNOSTIC STRIP TEST SCH ×4 (05:48→21:34)
[2017-07-19] MEDS: ISOSORB DINIT/HYDRALAZINE HCL 20/37.5MG TABLET PO SCH ×3 (05:49→21:17)
[2017-07-19] MEDS: INSULIN LISPRO (LOW DOSE) 100 UNITS/ML SUBCUT SCH ×3 (06:52→17:00)
[2017-07-19] MEDS: INSULIN LISPRO 100 UNITS/ML SUBCUT SCH ×3 (06:53→17:49)
[2017-07-19 08:00] VITALS: BP 119/57
[2017-07-19] MEDS: ARIPIPRAZOLE 10MG TABLET PO SCH (08:15)
[2017-07-19] MEDS: METOPROLOL TARTRATE 25MG TABLET PO SCH ×2 (08:15→21:17)
[2017-07-19] MEDS: POTASSIUM CHLORIDE 20MEQ TABLET SR PO SCH (08:15)
[2017-07-19] MEDS: CARBAMAZEPINE 200MG TABLET PO SCH ×3 (08:16→17:46)
[2017-07-19] MEDS: FAMOTIDINE 20MG TABLET PO SCH ×2 (08:16→17:46)
[2017-07-19] MEDS: ENOXAPARIN 30MG/0.3ML SYR SUBCUT SCH ×2 (08:16→21:17)
[2017-07-19] MEDS: TOPIRAMATE 100MG TABLET PO SCH ×2 (08:16→21:16)
[2017-07-19] MEDS: LINAGLIPTIN 5MG TABLET PO SCH (08:16)
[2017-07-19] MEDS: NITROFURANTOIN 100MG M/M CAPSULE PO SCH ×2 (08:16→21:16)
[2017-07-19] MEDS: LOSARTAN POTASSIUM 50 MG TABLET PO SCH (08:16)
[2017-07-19] MEDS: DOCUSATE SODIUM 100MG CAPSULE PO SCH ×2 (08:16→17:46)
[2017-07-19] MEDS: LIDOCAINE 5% PATCH TOP SCH (08:17)
[2017-07-19 20:00] VITALS: BP 145/57
[2017-07-19] MEDS: POLYETHYLENE GLYCOL 3350 (17GM) 1 DOSE PACK PO SCH (21:00)
[2017-07-19] MEDS: ATORVASTATIN CALCIUM 10MG TABLET PO SCH (21:16)
[2017-07-19] MEDS: INSULIN DETEMIR UD 100 UNITS/ML SYR SUBCUT SCH (21:35)
[2017-07-20] MEDS: IPRATROPIUM/ALBUTEROL 0.5-3(2.5)MG/3ML NEB HHN SCH ×4 (00:17→15:04)
[2017-07-20] MEDS: ISOSORB DINIT/HYDRALAZINE HCL 20/37.5MG TABLET PO SCH ×2 (05:15→15:05)
[2017-07-20] MEDS: BLOOD SUGAR DIAGNOSTIC STRIP TEST SCH ×3 (05:55→17:01)
[2017-07-20] MEDS: INSULIN LISPRO (LOW DOSE) 100 UNITS/ML SUBCUT SCH ×2 (07:34→13:00)
[2017-07-20] MEDS: INSULIN LISPRO 100 UNITS/ML SUBCUT SCH ×2 (07:35→15:08)
[2017-07-20 08:00] VITALS: BP 132/60
[2017-07-20] MEDS: DOCUSATE SODIUM 100MG CAPSULE PO SCH ×2 (09:00→16:56)
[2017-07-20] MEDS: IBUPROFEN 400MG TABLET PO PRN (09:53)
[2017-07-20] MEDS: CARBAMAZEPINE 200MG TABLET PO SCH ×3 (09:59→16:56)
[2017-07-20] MEDS: ENOXAPARIN 30MG/0.3ML SYR SUBCUT SCH (09:59)
[2017-07-20] MEDS: ARIPIPRAZOLE 10MG TABLET PO SCH (09:59)
[2017-07-20] MEDS: NITROFURANTOIN 100MG M/M CAPSULE PO SCH (10:00)
[2017-07-20] MEDS: FAMOTIDINE 20MG TABLET PO SCH ×2 (10:00→16:56)
[2017-07-20] MEDS: TOPIRAMATE 100MG TABLET PO SCH (10:00)
[2017-07-20] MEDS: METOPROLOL TARTRATE 25MG TABLET PO SCH (10:00)
[2017-07-20 10:01] VITALS: BP 132/60
[2017-07-20] MEDS: LIDOCAINE 5% PATCH TOP SCH (10:01)
[2017-07-20] MEDS: LOSARTAN POTASSIUM 50 MG TABLET PO SCH (10:01)
[2017-07-20] MEDS: LINAGLIPTIN 5MG TABLET PO SCH (10:01)
[2017-07-20] MEDS: POTASSIUM CHLORIDE 20MEQ TABLET SR PO SCH (10:01)
== END 2017-07-20 17:16 | DRG 917 ==
PROVIDERS: ADMIT Physical Medicine & Rehabilitation Spinal Cord Injury Medicine; ATTEND Internal Medicine Endocrinology, Diabetes & Metabolism
DX: T42.6X2A Poisoning by other antiepileptic and sedative-hypnotic drugs, intentional self-harm, initial encounter (principal); J96.00 Acute respiratory failure, unspecified whether with hypoxia or hypercapnia; G92 Toxic encephalopathy; N17.9 Acute kidney failure, unspecified; E46 Unspecified protein-calorie malnutrition; R13.10 Dysphagia, unspecified; N39.0 Urinary tract infection, site not specified; I69.354 Hemiplegia and hemiparesis following cerebral infarction affecting left non-dominant side; I69.351 Hemiplegia and hemiparesis following cerebral infarction affecting right dominant side; F31.32 Bipolar disorder, current episode depressed, moderate; E87.1 Hypo-osmolality and hyponatremia; Z16.39 Resistance to other specified antimicrobial drug; E03.9 Hypothyroidism, unspecified; M16.11 Unilateral primary osteoarthritis, right hip; K59.00 Constipation, unspecified; J45.909 Unspecified asthma, uncomplicated; I10 Essential (primary) hypertension; G89.4 Chronic pain syndrome; G47.33 Obstructive sleep apnea (adult) (pediatric); G40.909 Epilepsy, unspecified, not intractable, without status epilepticus; E87.6 Hypokalemia; E83.42 Hypomagnesemia; E83.39 Other disorders of phosphorus metabolism; E78.5 Hyperlipidemia, unspecified; E78.1 Pure hyperglyceridemia; D50.9 Iron deficiency anemia, unspecified; T40.2X2A Poisoning by other opioids, intentional self-harm, initial encounter; E78.00 Pure hypercholesterolemia, unspecified; E66.01 Morbid (severe) obesity due to excess calories; B96.20 Unspecified Escherichia coli [E. coli] as the cause of diseases classified elsewhere; R00.0 Tachycardia, unspecified; E11.65 Type 2 diabetes mellitus with hyperglycemia; D25.9 Leiomyoma of uterus, unspecified; M54.9 Dorsalgia, unspecified; Z78.9 Other specified health status; Z92.3 Personal history of irradiation; Z92.21 Personal history of antineoplastic chemotherapy; Z91.5 Personal history of self-harm; Z88.0 Allergy status to penicillin; Z85.3 Personal history of malignant neoplasm of breast; Z79.899 Other long term (current) drug therapy; Z79.4 Long term (current) use of insulin; I69.320 Aphasia following cerebral infarction; Z22.322 Carrier or suspected carrier of Methicillin resistant Staphylococcus aureus; Z68.38 Body mass index [BMI] 38.0-38.9, adult; Z90.49 Acquired absence of other specified parts of digestive tract; Z88.2 Allergy status to sulfonamides; Z88.6 Allergy status to analgesic agent; Z88.8 Allergy status to other drugs, medicaments and biological substances; Z88.7 Allergy status to serum and vaccine; Z91.018 Allergy to other foods; Z82.49 Family history of ischemic heart disease and other diseases of the circulatory system; Y92.89 Other specified places as the place of occurrence of the external cause
CPT/HCPCS: 36415; 71020; 74000; 80048; 80051; 80053; 80061; 81001; 82270; 82306; 82607; 82728; 82746; 82962; 83036; 83540; 83550; 83735; 84100; 84134; 84443; 84630; 85025; 87077; 87086; 87186; 92523; 93970; 94640; 94660; 97110; 97116; 97162; 97166; 97530; 97532; 97535; C9113; J1200; J1650; J1815; J7512; J7620; J7626

== ENCOUNTER → 2018-03-08 | Day surgery (SDC) | payer MEDICARE, MEDICAID ==
[~2018-03-08] MED LIST changes: -AMA4 PO; -ARIP30TA10; -CHOL200010 PO; -CLOP75TA33 PO; -CYAN10009 PO; -DIPH50CA4 PO; -HYDR25TA PO; +IBUP-2030 MT; -INSU100I22 SQ; -INSU200I SQ; -LEVO50TA PO; -LEVO5TAB13 PO; +LEVVL SQ; -LOSA100T3 PO; +MECL-174 PO; -MIRA25TA PO; -OMEG1CAP17 PO; -POTA20TA82 PO; -RISP4; -ROSU20TA28 PO; -SPIR25TA4 PO; -TRAZ-132 PO; -ZET10 PO
== END | disposition home or self-care (01) ==
LOC: RAD 09:24
PROVIDERS: ATTEND Specialist
DX: N63.0 Unspecified lump in unspecified breast (principal)
CPT/HCPCS: 76641

== ENCOUNTER 2018-05-14 01:59 | Inpatient (IN) | payer MEDICARE, MEDICAID ==
[~2018-05-14] VITALS: Ht 160 cm; Wt 100.2 kg
[2018-05-14] MEDS ORDERED: SODIUM CHLORIDE 0.9% 1,000 ML IV ONE (02:23)
[2018-05-14] MEDS ORDERED: INSULIN REGULAR (HUMULIN R) 300UNITS/3ML SUBCUT ONE ×2 (02:30→04:45)
[2018-05-14 02:53] LABS: BG BASE EXCESS -1.4 mmol/L (-2.0-2.0); BG CARBOXYHEMOGLOBIN 1.4 % (0.5-1.5); BG DEOXYHEMOGLOBIN 3.9 % (0.0-5.0); BG FRACTION INSPIRED OXYGEN 21; BG HCO3 ACT 22.9 mmol/L (22.0-26.0); BG METHEMOGLOBIN 0.3 % (0.0-1.5); BG OXYHEMOGLOBIN 94.4 % (94.0-97.0); BG PCO2 37.5 mmHg (35.0-45.0); BG PH 7.404 (7.350-7.450); BG PO2 81.5 mmHg (75.0-100.0); BG SAMPLE SITE RIGHT RADIAL; BG TOTAL HEMOGLOBIN 13.9 g/dL (12.0-18.0); BG VENT MODE ROOM AIR
[2018-05-14 03:00] LABS: BASOPHILS % 0.5 % (0.0-2.0); EOSINOPHILS % 0.9 % (0.0-5.0); HEMATOCRIT. 41.4 % (36.0-48.0); HEMOGLOBIN. 13.7 g/dL (12.0-16.0); LYMPHOCYTES % 29.3 % (20.0-50.0); MEAN CORPUSCULAR HEMOGLOBIN 30.6 pg (28.0-32.0); MEAN CORPUSCULAR VOLUME 92.5 fL (81.0-99.0); MEAN PLATELET VOLUME 10.9 fl (7.4-10.4); MONOCYTES % 8.5 % (2.0-8.0); NEUTROPHILS % 60.8 % (40.0-76.0); PLATELET 195 x1000/uL (130-400); RED BLOOD CELL COUNT 4.48 mill/uL (4.2-5.4); RED CELL DISTRIBUTION WIDTH 16.7 % (11.6-14.6)
[2018-05-14 03:21] LABS: CHLORIDE 94 mEq/L (98-107)
[2018-05-14 03:29] LABS: BETA HYDROXYBUTYRATE 0.1 mMol/L (0.0-0.3)
[2018-05-14] MEDS ORDERED: SODIUM CHLORIDE 0.9% 1,000 ML IV SCH (04:38)
[2018-05-14 05:50] LABS: CLARITY URINE CLOUDY (CLEAR); COLOR URINE YELLOW (YELLOW); KETONES URINE NEGATIVE (NEGATIVE); LEUKOCYTE ESTERASE URINE 1+ (NEGATIVE); NITRITE URINE POSITIVE (NEGATIVE); OCCULT BLOOD URINE NEGATIVE (NEGATIVE); PROTEIN URINE NEGATIVE (NEGATIVE); SPECIFIC GRAVITY URINE 1.023 (1.005-1.030); UROBILINOGEN URINE 0.2 E.U./dL (0.2-1.0)
[2018-05-14 09:30] VITALS: BP 149/56
[2018-05-14 10:00] VITALS: BP 149/56
[2018-05-14] MEDS ORDERED: HYDR-4133 PO (11:08)
[2018-05-14] MEDS ORDERED: ACETAMINOPHEN 650MG/20.3ML UDC GT PRN (12:00)
[2018-05-14] MEDS ORDERED: CLONIDINE 0.1MG TABLET PO PRN (12:00)
[2018-05-14] MEDS ORDERED: DEXTROSE 50% WATER 50ML SYRINGE IV PRN (12:00)
[2018-05-14] MEDS ORDERED: ARIPIPRAZOLE 30 MG PO SCH (12:00)
[2018-05-14] MEDS ORDERED: INSULIN DETEMIR 40 UNIT SQ SCH (12:00)
[2018-05-14] MEDS ORDERED: HYDROCODONE/ACETAMINOPHEN 5/325MG TABLET PO PRN (12:00)
[2018-05-14] MEDS ORDERED: MECLIZINE HCL 25 MG PO PRN (12:00)
[2018-05-14] MEDS ORDERED: TOPIRAMATE 200 MG PO SCH (12:00)
[2018-05-14] MEDS ORDERED: ACETAMINOPHEN 325MG TABLET PO PRN (12:00)
[2018-05-14] MEDS ORDERED: MEDICATION NOT ON FORMULARY EA (Nebivolol Hcl (Bystolic) 10 MG) PO SCH (12:00)
[2018-05-14] MEDS ORDERED: ONDANSETRON HCL 4MG/2ML INJ IV PRN (12:00)
[2018-05-14] MEDS ORDERED: MEDICATION NOT ON FORMULARY EA (Hydralazine Hcl 10 MG) PO SCH (12:00)
[2018-05-14] MEDS ORDERED: ACETAMINOPHEN 650MG SUPP PR PRN (12:00)
[2018-05-14] MEDS: INSULIN LISPRO 100 UNITS/ML SUBCUT SCH ×3 (12:35→22:24)
[2018-05-14 12:37] VITALS: BP 148/56
[2018-05-14] MEDS ORDERED: MECLIZINE 25MG TABLET PO PRN (12:45)
[2018-05-14] MEDS: ARIPIPRAZOLE 15MG TABLET PO SCH (12:52)
[2018-05-14] MEDS: CARBAMAZEPINE 200MG TABLET PO SCH ×3 (12:52→17:09)
[2018-05-14] MEDS ORDERED: MEDICATION NOT ON FORMULARY EA (Ibuprofen 1 TAB) MT SCH (13:00)
[2018-05-14] MEDS ORDERED: HYDRALAZINE HCL 10MG TABLET PO SCH (13:15)
[2018-05-14] MEDS: SODIUM CHLORIDE 0.9% 1,000 ML IV SCH (13:35)
[2018-05-14] MEDS: NEBIVOLOL HCL 5 MG TABLET PO SCH (14:10)
[2018-05-14] MEDS ORDERED: INFLUENZA VIRUS VACCINE 0.5ML SYR IM ONE (16:00)
[2018-05-14 16:05] VITALS: BP 139/65
[2018-05-14] MEDS: BLOOD SUGAR DIAGNOSTIC STRIP TEST SCH ×2 (16:49→21:27)
[2018-05-14 20:00] VITALS: BP 128/66
[2018-05-14] MEDS: TOPIRAMATE 100MG TABLET PO SCH (22:41)
[2018-05-15] VITALS: BP 139/52
[2018-05-15 04:00] VITALS: BP 158/66
[2018-05-15] MEDS: SODIUM CHLORIDE 0.9% 1,000 ML IV SCH (06:19)
[2018-05-15] MEDS: BLOOD SUGAR DIAGNOSTIC STRIP TEST SCH ×3 (06:46→16:45)
[2018-05-15] MEDS: INSULIN LISPRO 100 UNITS/ML SUBCUT SCH ×3 (06:50→18:13)
[2018-05-15 08:14] VITALS: BP 152/72
[2018-05-15] MEDS ORDERED: HYDRALAZINE HCL 10MG TABLET PO SCH (09:00)
[2018-05-15] MEDS: ARIPIPRAZOLE 15MG TABLET PO SCH (09:38)
[2018-05-15] MEDS: CARBAMAZEPINE 200MG TABLET PO SCH ×3 (09:39→18:08)
[2018-05-15] MEDS: NEBIVOLOL HCL 5 MG TABLET PO SCH (09:39)
[2018-05-15] MEDS: TOPIRAMATE 100MG TABLET PO SCH (09:40)
[2018-05-15 16:00] VITALS: BP 153/76
[2018-05-15] MEDS ORDERED: LEVO500T2 MT (17:14)
[2018-05-15 19:04] LABS: BASOPHILS % 0.1 % (0.0-2.0); EOSINOPHILS % 1.5 % (0.0-5.0); HEMATOCRIT. 38.5 % (36.0-48.0); HEMOGLOBIN. 12.7 g/dL (12.0-16.0); LYMPHOCYTES % 29.2 % (20.0-50.0); MEAN CORPUSCULAR HEMOGLOBIN 29.9 pg (28.0-32.0); MEAN CORPUSCULAR VOLUME 90.4 fL (81.0-99.0); MEAN PLATELET VOLUME 10.7 fl (7.4-10.4); MONOCYTES % 8.3 % (2.0-8.0); NEUTROPHILS % 60.9 % (40.0-76.0); PLATELET 170 x1000/uL (130-400); RED BLOOD CELL COUNT 4.26 mill/uL (4.2-5.4); RED CELL DISTRIBUTION WIDTH 16.7 % (11.6-14.6)
[2018-05-15 19:20] LABS: CHLORIDE 107 mEq/L (98-107)
[2018-05-15 19:50] VITALS: BP 154/60
[2018-05-15 20:00] VITALS: BP 154/60
[2018-05-15] MEDS ORDERED: INSULIN GLARGINE UD 100 UNITS/ML SYR SUBCUT SCH (22:00)
== END 2018-05-15 21:05 | disposition home or self-care (01) | DRG 637 ==
LOC: ER 02:26 → 5WST 04:40 → EDBEDREQ 04:51 → EDBEDREQTM 04:51 → ENRESERV 06:29
PROVIDERS: ADMIT Family Medicine; ATTEND Family Medicine
DX: E11.65 Type 2 diabetes mellitus with hyperglycemia (principal); E43 Unspecified severe protein-calorie malnutrition; E87.1 Hypo-osmolality and hyponatremia; E87.6 Hypokalemia; E78.5 Hyperlipidemia, unspecified; F31.9 Bipolar disorder, unspecified; G40.909 Epilepsy, unspecified, not intractable, without status epilepticus; I10 Essential (primary) hypertension; J45.909 Unspecified asthma, uncomplicated; Z88.6 Allergy status to analgesic agent; Z88.5 Allergy status to narcotic agent; Z90.49 Acquired absence of other specified parts of digestive tract; Z88.0 Allergy status to penicillin; Z88.2 Allergy status to sulfonamides; Z91.018 Allergy to other foods; Z88.7 Allergy status to serum and vaccine; Z79.899 Other long term (current) drug therapy; Z79.4 Long term (current) use of insulin; Z68.39 Body mass index [BMI] 39.0-39.9, adult
CPT/HCPCS: 36415; 36600; 71045; 80053; 81003; 82010; 82375; 82805; 82962; 83036; 83690; 84484; 85025; 87077; 87086; 87186; 90686; 93005; 96360; 96361; 96372; 99285; J1815; J7030

== ENCOUNTER 2019-04-11 17:08 | Emergency (ER) | payer MEDICAID, MEDICARE ==
[~2019-04-11] VITALS: Ht 165.1 cm; Wt 105.0 kg
[~2019-04-11 17:08] MED LIST changes: +HYDR-4133 PO; +LEVO500T2 MT; +NITR100C MT
[2019-04-11] MEDS ORDERED: PREDNISONE 20MG TABLET PO ONE (20:00)
[2019-04-11] MEDS ORDERED: HYDROXYZINE 25MG TABLET PO ONE (20:00)
[2019-04-11 20:30] VITALS: BP 151/66
== END 2019-04-11 20:30 | disposition home or self-care (01) ==
LOC: ER 18:38
DX: L30.9 Dermatitis, unspecified (principal); F31.9 Bipolar disorder, unspecified; E11.9 Type 2 diabetes mellitus without complications; I10 Essential (primary) hypertension; Z79.4 Long term (current) use of insulin; Z88.0 Allergy status to penicillin; Z88.2 Allergy status to sulfonamides; Z88.6 Allergy status to analgesic agent; Z91.018 Allergy to other foods
CPT/HCPCS: 99283; J7512

== ENCOUNTER 2020-06-19 17:12 | Emergency (ER) | payer MEDICARE, MEDICAID ==
[~2020-06-19] VITALS: Ht 157.5 cm; Wt 100.0 kg
[2020-06-19] MEDS ORDERED: ACETAMINOPHEN 500MG TABLET PO NR (17:45)
[2020-06-19 18:47] LABS: CLARITY URINE CLEAR (CLEAR); COLOR URINE YELLOW (YELLOW); KETONES URINE NEGATIVE (NEGATIVE); LEUKOCYTE ESTERASE URINE 1+ (NEGATIVE); NITRITE URINE NEGATIVE (NEGATIVE); OCCULT BLOOD URINE NEGATIVE (NEGATIVE); PH URINE 6.5 (4.5-8.0); PROTEIN URINE NEGATIVE (NEGATIVE); UROBILINOGEN URINE 0.2 E.U./dL (0.2-1.0)
[2020-06-19 20:59] VITALS: BP 213/81
== END 2020-06-19 21:02 | disposition home or self-care (01) ==
LOC: ER 17:12
DX: N39.0 Urinary tract infection, site not specified (principal); M54.5 Low back pain; E11.9 Type 2 diabetes mellitus without complications; I10 Essential (primary) hypertension; Z88.6 Allergy status to analgesic agent; Z88.5 Allergy status to narcotic agent; Z88.0 Allergy status to penicillin; Z88.2 Allergy status to sulfonamides; Z91.018 Allergy to other foods
CPT/HCPCS: 72100; 81003; 82962; 99284

== ENCOUNTER 2021-04-28 16:07 | Emergency (ER) | payer BC, MEDICAID, OTHER ==
[~2021-04-28] VITALS: Ht 165.1 cm; Wt 95.0 kg
[2021-04-28 16:19] VITALS: BP 116/80
[2021-04-28] MEDS ORDERED: ACETAMINOPHEN 325MG TABLET PO ONE (17:15)
[2021-04-28] MEDS ORDERED: ACET-2708 MT (18:08)
[2021-04-28] MEDS ORDERED: NAPR-1176 MT (18:08)
== END 2021-04-28 18:15 | disposition home or self-care (01) ==
LOC: ER 16:20
DX: M54.5 Low back pain (principal); I10 Essential (primary) hypertension; E11.9 Type 2 diabetes mellitus without complications; Z88.0 Allergy status to penicillin; Z88.6 Allergy status to analgesic agent; Z91.018 Allergy to other foods; Z88.5 Allergy status to narcotic agent; Z79.899 Other long term (current) drug therapy; Z90.49 Acquired absence of other specified parts of digestive tract
CPT/HCPCS: 72100; 99283

== ENCOUNTER 2021-08-23 05:01 | Inpatient (IN) | payer OTHER ==
[~2021-08-23] VITALS: Ht 160 cm; Wt 104.8 kg
[~2021-08-23 05:01] MED LIST changes: +ACET-2708 MT; +ARIP30TA17 PO; +B50 PO; +CARB200C7 PO; +CLON-457 PO; +CLOP-31 PO; +EZET10TA26 PO; +FAMO-135 PO; +FURO-151 PO; +IBUP-2028 PO; +LEVO50TA PO; +LOSA50TA41; +NAPR-1176 MT; +POTA20TA82 PO
[2021-08-23 05:47] LABS: BASOPHILS % 0.4 % (0.0-2.0); EOSINOPHILS % 3.5 % (0.0-5.0); HEMATOCRIT. 35.3 % (36.0-48.0); HEMOGLOBIN. 11.9 g/dL (12.0-16.0); LYMPHOCYTES % 26.8 % (20.0-50.0); MEAN CORPUSCULAR HEMOGLOBIN 29.9 pg (28.0-32.0); MEAN CORPUSCULAR VOLUME 88.8 fL (81.0-99.0); MEAN PLATELET VOLUME 9.7 fl (7.4-10.4); MONOCYTES % 8.2 % (2.0-8.0); NEUTROPHILS % 61.1 % (40.0-76.0); PLATELET 208 x1000/uL (130-400); RED BLOOD CELL COUNT 3.98 mill/uL (4.2-5.4); RED CELL DISTRIBUTION WIDTH 17.6 % (11.6-14.6)
[2021-08-23 05:55] LABS: CHLORIDE 112 mEq/L (98-107)
[2021-08-23 05:59] LABS: ETHANOL BLOOD < 10 mg/dL
[2021-08-23] MEDS ORDERED: ACETAMINOPHEN 325MG TABLET PO ONE (06:45)
[2021-08-23 07:12] LABS: CLARITY URINE CLEAR (CLEAR); COLOR URINE YELLOW (YELLOW); KETONES URINE NEGATIVE (NEGATIVE); LEUKOCYTE ESTERASE URINE 2+ (NEGATIVE); NITRITE URINE NEGATIVE (NEGATIVE); OCCULT BLOOD URINE 1+ (NEGATIVE); PROTEIN URINE NEGATIVE (NEGATIVE); UROBILINOGEN URINE 0.2 E.U./dL (0.2-1.0)
[2021-08-23 07:26] LABS: OPIATES URINE SCREEN NEGATIVE (NEGATIVE); PHENCYCLIDINE URINE SCREEN NEGATIVE (NEGATIVE)
[2021-08-23 07:27] LABS: *AMPHETAMINES SCREEN URINE NEGATIVE (NEGATIVE); *BARBITURATES SCREEN URINE NEGATIVE (NEGATIVE); *BENZODIAZEPINES SCREEN URINE NEGATIVE (NEGATIVE); *COCAINE SCREEN URINE NEGATIVE (NEGATIVE); CANNABINOID URINE SCREEN PRESUMTIVE POSITIVE (NEGATIVE); METHADONE URINE SCREEN NEGATIVE (NEGATIVE)
[2021-08-23] MEDS ORDERED: LEVOFLOXACIN 750MG PREMIX 150 ML IV ONE (07:45)
[2021-08-23] MEDS ORDERED: MORPHINE SULFATE 4 MG/ML CPJ (NOT FOR IM USE) IV ONE (08:45)
[2021-08-23] MEDS ORDERED: HYDRALAZINE 20MG/ML VIAL IV PRN (13:45)
[2021-08-23] MEDS ORDERED: NALOXONE HCL 0.4MG/ML VIAL IV PRN (15:15)
[2021-08-23] MEDS: METHOCARBAMOL 500MG TABLET PO PRN ×2 (15:15→23:49)
[2021-08-23] MEDS ORDERED: INSU100C6 SQ (16:05)
[2021-08-23] MEDS ORDERED: INSU100V36 SQ (16:07)
[2021-08-23] MEDS ORDERED: ATOR20TA65 MT (16:07)
[2021-08-23 16:13] VITALS: BP 144/69
[2021-08-23] MEDS ORDERED: MECLIZINE 25MG TABLET PO PRN (16:45)
[2021-08-23] MEDS ORDERED: ONDANSETRON HCL 4MG/2ML INJ IV PRN (17:00)
[2021-08-23] MEDS ORDERED: ENOXAPARIN 40MG/0.4ML SYR SUBCUT SCH (17:00)
[2021-08-23] MEDS ORDERED: CLONIDINE 0.1MG TABLET PO PRN (17:00)
[2021-08-23] MEDS: MORPHINE SULFATE 2 MG/ML CPJ (NOT FOR IM USE) IV PRN (17:05)
[2021-08-23] MEDS: ENOXAPARIN 30MG/0.3ML SYR SUBCUT SCH (17:37)
[2021-08-23] MEDS: CARBAMAZEPINE 200MG TABLET PO SCH (17:38)
[2021-08-23] MEDS: FAMOTIDINE 20MG TABLET PO SCH (17:38)
[2021-08-23] MEDS ORDERED: DEXTROSE 50% WATER 50ML SYRINGE IV PRN (18:00)
[2021-08-23] MEDS ORDERED: LEVOFLOXACIN 500MG PREMIX 100 ML IV NR (18:00)
[2021-08-23 20:00] VITALS: BP 161/59
[2021-08-23] MEDS: BLOOD SUGAR DIAGNOSTIC STRIP TEST SCH (20:50)
[2021-08-23] MEDS: INSULIN LISPRO 100 UNITS/ML SUBCUT SCH (20:51)
[2021-08-23] MEDS: TOPIRAMATE 100MG TABLET PO SCH (20:55)
[2021-08-23] MEDS: DIPHENHYDRAMINE 50MG CAPSULE PO SCH (20:55)
[2021-08-23] MEDS: HYDROCODONE/ACETAMINOPHEN 5/325MG TABLET PO PRN (20:55)
[2021-08-23] MEDS ORDERED: INSULIN GLARGINE UD 100 UNITS/ML SYR SUBCUT SCH (22:00)
[2021-08-24] VITALS: BP 163/65
[2021-08-24 04:00] VITALS: BP 127/52
[2021-08-24] MEDS: HYDROCODONE/ACETAMINOPHEN 5/325MG TABLET PO PRN (04:26)
[2021-08-24] MEDS: ENOXAPARIN 30MG/0.3ML SYR SUBCUT SCH ×2 (05:17→16:41)
[2021-08-24 06:34] LABS: BASOPHILS % 0.2 % (0.0-2.0); EOSINOPHILS % 3.1 % (0.0-5.0); HEMATOCRIT. 34.9 % (36.0-48.0); HEMOGLOBIN. 11.8 g/dL (12.0-16.0); LYMPHOCYTES % 41.3 % (20.0-50.0); MEAN CORPUSCULAR HEMOGLOBIN 29.7 pg (28.0-32.0); MEAN CORPUSCULAR VOLUME 88.1 fL (81.0-99.0); MEAN PLATELET VOLUME 9.5 fl (7.4-10.4); MONOCYTES % 7.1 % (2.0-8.0); NEUTROPHILS % 48.3 % (40.0-76.0); PLATELET 224 x1000/uL (130-400); RED BLOOD CELL COUNT 3.96 mill/uL (4.2-5.4); RED CELL DISTRIBUTION WIDTH 17.5 % (11.6-14.6)
[2021-08-24] MEDS: LEVOTHYROXINE SODIUM 50MCG TABLET PO SCH (06:51)
[2021-08-24] MEDS: INSULIN LISPRO 100 UNITS/ML SUBCUT SCH ×4 (06:54→21:47)
[2021-08-24] MEDS: BLOOD SUGAR DIAGNOSTIC STRIP TEST SCH ×4 (06:54→21:39)
[2021-08-24 08:19] VITALS: BP 160/81
[2021-08-24] MEDS: CARBAMAZEPINE 200MG TABLET PO SCH ×3 (08:54→16:28)
[2021-08-24] MEDS: MORPHINE SULFATE 2 MG/ML CPJ (NOT FOR IM USE) IV PRN ×2 (08:54→15:39)
[2021-08-24] MEDS: EZETIMIBE 10MG TABLET PO SCH (08:55)
[2021-08-24] MEDS: POTASSIUM CHLORIDE 20MEQ TABLET SR PO SCH (08:55)
[2021-08-24] MEDS: LOSARTAN POTASSIUM 50 MG TABLET PO SCH (08:55)
[2021-08-24] MEDS: METOPROLOL TARTRATE 25MG TABLET PO SCH ×2 (08:56→16:28)
[2021-08-24] MEDS: ATORVASTATIN CALCIUM 20MG TABLET PO SCH (08:56)
[2021-08-24] MEDS: HYDRALAZINE HCL 10MG TABLET PO SCH (08:56)
[2021-08-24] MEDS: FUROSEMIDE 40MG TABLET PO SCH (08:56)
[2021-08-24] MEDS: TOPIRAMATE 100MG TABLET PO SCH ×2 (08:57→21:40)
[2021-08-24] MEDS: FAMOTIDINE 20MG TABLET PO SCH (08:57)
[2021-08-24] MEDS ORDERED: METOPROLOL SUCCINATE 50MG ER TABLET PO SCH (09:00)
[2021-08-24] MEDS ORDERED: CLOPIDOGREL 75MG TABLET PO SCH (09:00)
[2021-08-24] MEDS: ARIPIPRAZOLE 2MG TABLET PO SCH (09:04)
[2021-08-24 12:28] VITALS: BP 141/69
[2021-08-24 16:00] VITALS: BP 147/59
[2021-08-24 20:00] VITALS: BP 152/65
[2021-08-24] MEDS ORDERED: LEVOFLOXACIN 250MG PREMIX 50 ML IV SCH (21:00)
[2021-08-24] MEDS: METHOCARBAMOL 500MG TABLET PO PRN (21:39)
[2021-08-24] MEDS: DIPHENHYDRAMINE 50MG CAPSULE PO SCH (21:40)
[2021-08-25] VITALS: BP 149/63
[2021-08-25 04:00] VITALS: BP 130/61
[2021-08-25] MEDS: ENOXAPARIN 30MG/0.3ML SYR SUBCUT SCH (05:35)
[2021-08-25] MEDS: BLOOD SUGAR DIAGNOSTIC STRIP TEST SCH ×2 (05:37→12:30)
[2021-08-25] MEDS: INSULIN LISPRO 100 UNITS/ML SUBCUT SCH ×2 (06:23→12:30)
[2021-08-25] MEDS: LEVOTHYROXINE SODIUM 50MCG TABLET PO SCH (06:23)
[2021-08-25 08:04] VITALS: BP 149/65
[2021-08-25] MEDS: CARBAMAZEPINE 200MG TABLET PO SCH ×2 (08:55→12:28)
[2021-08-25] MEDS: ATORVASTATIN CALCIUM 20MG TABLET PO SCH (08:55)
[2021-08-25] MEDS: METOPROLOL TARTRATE 25MG TABLET PO SCH (08:56)
[2021-08-25] MEDS: FAMOTIDINE 20MG TABLET PO SCH (08:56)
[2021-08-25] MEDS: EZETIMIBE 10MG TABLET PO SCH (08:56)
[2021-08-25] MEDS: ARIPIPRAZOLE 2MG TABLET PO SCH (08:56)
[2021-08-25] MEDS: FUROSEMIDE 40MG TABLET PO SCH (08:56)
[2021-08-25] MEDS: TOPIRAMATE 100MG TABLET PO SCH (08:56)
[2021-08-25] MEDS: POTASSIUM CHLORIDE 20MEQ TABLET SR PO SCH (08:56)
[2021-08-25] MEDS: HYDRALAZINE HCL 10MG TABLET PO SCH (08:56)
[2021-08-25] MEDS: LOSARTAN POTASSIUM 50 MG TABLET PO SCH (08:56)
[2021-08-25] MEDS ORDERED: INSULIN GLARGINE UD 100 UNITS/ML SYR SUBCUT SCH (10:00)
[2021-08-25 12:32] VITALS: BP 125/50
[2021-08-25] MEDS ORDERED: LEVO500T89 MT (13:14)
[2021-08-25] MEDS: HYDROCODONE/ACETAMINOPHEN 5/325MG TABLET PO PRN (14:26)
[2021-08-25 14:40] VITALS: BP 125/50
[2021-08-25 15:33] VITALS: BP 155/58
[2021-08-25] MEDS ORDERED: LEVOFLOXACIN 250MG TABLET PO SCH (16:00)
== END 2021-08-25 17:07 | disposition home or self-care (01) | DRG 552 ==
LOC: ER 05:01 → 8WST 09:51 → ENRESERV 13:19
PROVIDERS: ADMIT Emergency Medicine; ATTEND Internal Medicine
DX: M47.817 Spondylosis without myelopathy or radiculopathy, lumbosacral region (principal); G45.9 Transient cerebral ischemic attack, unspecified; N39.0 Urinary tract infection, site not specified; I69.351 Hemiplegia and hemiparesis following cerebral infarction affecting right dominant side; Z68.41 Body mass index [BMI] 40.0-44.9, adult; M47.816 Spondylosis without myelopathy or radiculopathy, lumbar region; E03.9 Hypothyroidism, unspecified; M48.061 Spinal stenosis, lumbar region without neurogenic claudication; R47.81 Slurred speech; Z20.822 Contact with and (suspected) exposure to COVID-19; M48.02 Spinal stenosis, cervical region; E11.649 Type 2 diabetes mellitus with hypoglycemia without coma; M43.16 Spondylolisthesis, lumbar region; E66.9 Obesity, unspecified; E78.5 Hyperlipidemia, unspecified; I10 Essential (primary) hypertension; M54.10 Radiculopathy, site unspecified; Z79.4 Long term (current) use of insulin; Z85.3 Personal history of malignant neoplasm of breast; Z71.3 Dietary counseling and surveillance; Z88.0 Allergy status to penicillin; Z88.2 Allergy status to sulfonamides; Z88.6 Allergy status to analgesic agent; Z88.5 Allergy status to narcotic agent; Z91.018 Allergy to other foods; Z79.899 Other long term (current) drug therapy; Z79.02 Long term (current) use of antithrombotics/antiplatelets; Z90.49 Acquired absence of other specified parts of digestive tract; Z91.81 History of falling
CPT/HCPCS: 36415; 70551; 71045; 72141; 72148; 80048; 80053; 80061; 80305; 80320; 81003; 82962; 83036; 85025; 87426; 93005; 93306; 97162; 99285; J0360; J1650; J1815; J1956; J2270; J7040; Q0163; G0480

== ENCOUNTER 2021-09-16 01:16 | Emergency (ER) | payer OTHER ==
[~2021-09-16] VITALS: Ht 157.5 cm; Wt 100.0 kg
[~2021-09-16 01:16] MED LIST changes: +ATOR20TA65 MT; +INSU100C6 SQ; +INSU100V36 SQ; +LEVO500T89 MT; -NITR100C MT
[2021-09-16 04:07] LABS: BASOPHILS % 0.2 % (0.0-2.0); EOSINOPHILS % 1.5 % (0.0-5.0); HEMATOCRIT. 33.5 % (36.0-48.0); HEMOGLOBIN. 11.2 g/dL (12.0-16.0); LYMPHOCYTES % 23.7 % (20.0-50.0); MEAN CORPUSCULAR HEMOGLOBIN 29.6 pg (28.0-32.0); MEAN CORPUSCULAR VOLUME 88.6 fL (81.0-99.0); MEAN PLATELET VOLUME 9.2 fl (7.4-10.4); MONOCYTES % 11.3 % (2.0-8.0); NEUTROPHILS % 63.3 % (40.0-76.0); PLATELET 236 x1000/uL (130-400); RED BLOOD CELL COUNT 3.78 mill/uL (4.2-5.4); RED CELL DISTRIBUTION WIDTH 17.7 % (11.6-14.6)
[2021-09-16 04:18] LABS: CHLORIDE 108 mEq/L (98-107)
[2021-09-16] MEDS ORDERED: KETOROLAC 15MG/ML VIAL IV ONE (04:45)
[2021-09-16 05:30] VITALS: BP 156/63
[2021-09-16] MEDS ORDERED: IBUP-2029 MT (05:30)
== END 2021-09-16 05:56 | disposition home or self-care (01) ==
LOC: ER 01:16
DX: R53.1 Weakness (principal); G89.29 Other chronic pain; M54.89 Other dorsalgia; E11.9 Type 2 diabetes mellitus without complications; I10 Essential (primary) hypertension; J45.909 Unspecified asthma, uncomplicated; Z86.73 Personal history of transient ischemic attack (TIA), and cerebral infarction without residual deficits; Z20.822 Contact with and (suspected) exposure to COVID-19; Z86.16 Personal history of COVID-19; Z85.3 Personal history of malignant neoplasm of breast; Z90.49 Acquired absence of other specified parts of digestive tract; Z79.4 Long term (current) use of insulin; Z88.2 Allergy status to sulfonamides; Z88.6 Allergy status to analgesic agent; Z91.018 Allergy to other foods; Z88.0 Allergy status to penicillin
CPT/HCPCS: 36415; 71045; 80053; 83880; 84484; 85025; 87426; 93005; 96374; 99285; J1885

== ENCOUNTER 2021-09-20 22:21 | Emergency (ER) | payer OTHER, MEDICARE ==
[~2021-09-20] VITALS: Ht 154.9 cm; Wt 78.0 kg
[~2021-09-20 22:21] MED LIST changes: +IBUP-2029 MT
[2021-09-20 23:18] LABS: BASOPHILS % 0.3 % (0.0-2.0); EOSINOPHILS % 1.2 % (0.0-5.0); HEMATOCRIT. 35.7 % (36.0-48.0); LYMPHOCYTES % 20.4 % (20.0-50.0); MEAN CORPUSCULAR HEMOGLOBIN 29.9 pg (28.0-32.0); MEAN CORPUSCULAR VOLUME 89.1 fL (81.0-99.0); MEAN PLATELET VOLUME 9.1 fl (7.4-10.4); MONOCYTES % 9.8 % (2.0-8.0); NEUTROPHILS % 68.3 % (40.0-76.0); PLATELET 252 x1000/uL (130-400); RED CELL DISTRIBUTION WIDTH 17.9 % (11.6-14.6)
[2021-09-20 23:21] LABS: CHLORIDE 110 mEq/L (98-107)
[2021-09-21 03:00] VITALS: BP 140/64
== END 2021-09-21 03:00 | disposition home or self-care (01) ==
LOC: ER 22:21
DX: I10 Essential (primary) hypertension (principal); R07.89 Other chest pain; E11.9 Type 2 diabetes mellitus without complications; Z86.73 Personal history of transient ischemic attack (TIA), and cerebral infarction without residual deficits; Z85.9 Personal history of malignant neoplasm, unspecified; Z79.4 Long term (current) use of insulin; Z88.6 Allergy status to analgesic agent; Z88.2 Allergy status to sulfonamides; Z88.5 Allergy status to narcotic agent; Z88.0 Allergy status to penicillin; Z91.018 Allergy to other foods
CPT/HCPCS: 36415; 71045; 80053; 83880; 84484; 85025; 93005; 99285

== ENCOUNTER 2021-09-24 01:32 | Emergency (ER) | payer OTHER ==
[~2021-09-24] VITALS: Ht 157.5 cm; Wt 90.0 kg
[~2021-09-24 01:32] MED LIST changes: +NITR100C MT
[2021-09-24 03:05] LABS: BASOPHILS % 0.3 % (0.0-2.0); EOSINOPHILS % 1.9 % (0.0-5.0); HEMATOCRIT. 34.7 % (36.0-48.0); HEMOGLOBIN. 11.7 g/dL (12.0-16.0); LYMPHOCYTES % 20.6 % (20.0-50.0); MEAN CORPUSCULAR HEMOGLOBIN 30.1 pg (28.0-32.0); MEAN CORPUSCULAR VOLUME 89.3 fL (81.0-99.0); MEAN PLATELET VOLUME 9.5 fl (7.4-10.4); MONOCYTES % 10.5 % (2.0-8.0); NEUTROPHILS % 66.7 % (40.0-76.0); PLATELET 221 x1000/uL (130-400); RED BLOOD CELL COUNT 3.88 mill/uL (4.2-5.4)
[2021-09-24 03:07] LABS: CHLORIDE 109 mEq/L (98-107)
[2021-09-24 04:05] VITALS: BP 160/58
== END 2021-09-24 04:35 | disposition home or self-care (01) ==
LOC: ER 01:37
DX: R55 Syncope and collapse (principal); I69.328 Other speech and language deficits following cerebral infarction; E11.9 Type 2 diabetes mellitus without complications; I10 Essential (primary) hypertension; W01.0XXA Fall on same level from slipping, tripping and stumbling without subsequent striking against object, initial encounter; Y93.89 Activity, other specified; Y92.9 Unspecified place or not applicable; Z79.4 Long term (current) use of insulin; Z88.0 Allergy status to penicillin; Z88.2 Allergy status to sulfonamides; Z88.5 Allergy status to narcotic agent; Z85.9 Personal history of malignant neoplasm, unspecified; Z88.6 Allergy status to analgesic agent
CPT/HCPCS: 36415; 80053; 82962; 84484; 85025; 93005; 99284

== ENCOUNTER 2021-10-06 03:21 | Emergency (ER) | payer OTHER ==
[~2021-10-06] VITALS: Ht 165.1 cm; Wt 91.0 kg
[~2021-10-06 03:21] MED LIST changes: -NITR100C MT
[2021-10-06 04:57] LABS: BASOPHILS % 0.1 % (0.0-2.0); HEMATOCRIT. 31.8 % (36.0-48.0); HEMOGLOBIN. 10.5 g/dL (12.0-16.0); LYMPHOCYTES % 12.1 % (20.0-50.0); MEAN CORPUSCULAR HEMOGLOBIN 29.8 pg (28.0-32.0); MEAN CORPUSCULAR VOLUME 90.1 fL (81.0-99.0); MEAN PLATELET VOLUME 8.9 fl (7.4-10.4); MONOCYTES % 6.3 % (2.0-8.0); NEUTROPHILS % 80.5 % (40.0-76.0); PLATELET 221 x1000/uL (130-400); RED BLOOD CELL COUNT 3.53 mill/uL (4.2-5.4); RED CELL DISTRIBUTION WIDTH 18.5 % (11.6-14.6)
[2021-10-06 05:02] LABS: CLARITY URINE CLOUDY (CLEAR); COLOR URINE YELLOW (YELLOW); KETONES URINE NEGATIVE (NEGATIVE); LEUKOCYTE ESTERASE URINE 3+ (NEGATIVE); NITRITE URINE NEGATIVE (NEGATIVE); OCCULT BLOOD URINE TRACE (NEGATIVE); PH URINE 5.5 (4.5-8.0); PROTEIN URINE NEGATIVE (NEGATIVE); SPECIFIC GRAVITY URINE 1.012 (1.005-1.030); UROBILINOGEN URINE 0.2 E.U./dL (0.2-1.0)
[2021-10-06 05:03] LABS: CHLORIDE 112 mEq/L (98-107)
[2021-10-06] MEDS ORDERED: CEFTRIAXONE 1 G PREMIX 50 ML IV NR (05:30)
[2021-10-06 12:00] VITALS: BP 165/68
== END 2021-10-06 13:48 | disposition short-term general hospital (02) ==
LOC: ER 03:21
DX: N39.0 Urinary tract infection, site not specified (principal); G93.40 Encephalopathy, unspecified; E11.9 Type 2 diabetes mellitus without complications; I10 Essential (primary) hypertension; R51.9 Headache, unspecified; Z88.0 Allergy status to penicillin; Z88.2 Allergy status to sulfonamides; Z88.5 Allergy status to narcotic agent; Z91.018 Allergy to other foods; Z79.899 Other long term (current) drug therapy; Z86.73 Personal history of transient ischemic attack (TIA), and cerebral infarction without residual deficits
CPT/HCPCS: 36415; 70450; 71045; 80053; 81003; 83605; 83880; 84484; 85025; 87077; 87086; 87186; 93005; 96365; 99285; J0696

== ENCOUNTER 2021-10-10 07:22 | Emergency (ER) | payer OTHER ==
[~2021-10-10] VITALS: Ht 157.5 cm; Wt 90.0 kg
[2021-10-10] MEDS ORDERED: LIDOCAINE 5% PATCH TOP SCH (10:00)
[2021-10-10] MEDS ORDERED: KETOROLAC 60MG/2ML VIAL IM ONE (10:00)
[2021-10-10] MEDS ORDERED: IBUP-2028 MT (10:01)
[2021-10-10 11:44] VITALS: BP 165/56
== END 2021-10-10 11:45 | disposition home or self-care (01) ==
LOC: ER 07:22
DX: M25.551 Pain in right hip (principal); M25.521 Pain in right elbow; E11.9 Type 2 diabetes mellitus without complications; I10 Essential (primary) hypertension; I69.328 Other speech and language deficits following cerebral infarction; Z85.9 Personal history of malignant neoplasm, unspecified; Z88.5 Allergy status to narcotic agent; Z91.018 Allergy to other foods; Z88.6 Allergy status to analgesic agent; Z88.2 Allergy status to sulfonamides; Z88.0 Allergy status to penicillin; W01.0XXA Fall on same level from slipping, tripping and stumbling without subsequent striking against object, initial encounter; Y93.89 Activity, other specified; Y92.018 Other place in single-family (private) house as the place of occurrence of the external cause
CPT/HCPCS: 73060; 73080; 73090; 73502; 73552; 73564; 82962; 99284

== ENCOUNTER 2021-10-15 11:15 | Emergency (ER) | payer OTHER ==
[~2021-10-15] VITALS: Ht 160 cm; Wt 99.0 kg
[~2021-10-15 11:15] MED LIST changes: +IBUP-2028 MT
[2021-10-15] MEDS ORDERED: ONDANSETRON HCL 4MG/2ML INJ IV STA (11:32)
[2021-10-15] MEDS ORDERED: GENTAMICIN SULFATE 80 MG in SODIUM CHLORIDE 0.9% 100 ML IV STA (11:32)
[2021-10-15] MEDS ORDERED: SODIUM CHLORIDE 0.9% 1000ML BAG (SEPSIS BOLUS) IV ONE (11:45)
[2021-10-15] MEDS ORDERED: LEVOFLOXACIN 750MG PREMIX 150 ML IV ONE (11:45)
[2021-10-15] MEDS ORDERED: KETOROLAC 15MG/ML VIAL IV ONE (11:45)
[2021-10-15] MEDS ORDERED: GENTAMICIN 80MG PREMIX 100 ML IV STA (11:49)
[2021-10-15 12:40] LABS: BASOPHILS % 0.2 % (0.0-2.0); EOSINOPHILS % 0.6 % (0.0-5.0); HEMATOCRIT. 30.1 % (36.0-48.0); HEMOGLOBIN. 10.2 g/dL (12.0-16.0); MEAN PLATELET VOLUME 9.2 fl (7.4-10.4); MONOCYTES % 9.9 % (2.0-8.0); NEUTROPHILS % 78.3 % (40.0-76.0); PLATELET 232 x1000/uL (130-400); RED BLOOD CELL COUNT 3.39 mill/uL (4.2-5.4); RED CELL DISTRIBUTION WIDTH 17.6 % (11.6-14.6)
[2021-10-15 12:41] LABS: CHLORIDE 107 mEq/L (98-107)
[2021-10-15] MEDS ORDERED: DEXTROSE 50% WATER 50ML SYRINGE IV ONE (14:15)
[2021-10-15 15:56] LABS: CLARITY URINE CLEAR (CLEAR); COLOR URINE YELLOW (YELLOW); KETONES URINE NEGATIVE (NEGATIVE); LEUKOCYTE ESTERASE URINE 2+ (NEGATIVE); NITRITE URINE NEGATIVE (NEGATIVE); OCCULT BLOOD URINE NEGATIVE (NEGATIVE); PROTEIN URINE NEGATIVE (NEGATIVE); SPECIFIC GRAVITY URINE 1.008 (1.005-1.030); UROBILINOGEN URINE 0.2 E.U./dL (0.2-1.0)
[2021-10-15 23:13] VITALS: BP 121/48
== END 2021-10-15 23:30 | disposition short-term general hospital (02) ==
LOC: ER 11:25 → CANBEDREQ 10-16 00:09
DX: A41.9 Sepsis, unspecified organism (principal); M54.50 Low back pain, unspecified; E11.649 Type 2 diabetes mellitus with hypoglycemia without coma; E11.22 Type 2 diabetes mellitus with diabetic chronic kidney disease; I12.9 Hypertensive chronic kidney disease with stage 1 through stage 4 chronic kidney disease, or unspecified chronic kidney disease; N18.9 Chronic kidney disease, unspecified; Z86.73 Personal history of transient ischemic attack (TIA), and cerebral infarction without residual deficits; Z90.49 Acquired absence of other specified parts of digestive tract; Z20.822 Contact with and (suspected) exposure to COVID-19; Z85.9 Personal history of malignant neoplasm, unspecified; Z79.4 Long term (current) use of insulin; Z88.6 Allergy status to analgesic agent; Z91.018 Allergy to other foods; Z88.2 Allergy status to sulfonamides; Z88.7 Allergy status to serum and vaccine; Z88.5 Allergy status to narcotic agent; Z88.0 Allergy status to penicillin; R30.0 Dysuria; W01.0XXA Fall on same level from slipping, tripping and stumbling without subsequent striking against object, initial encounter; Y93.89 Activity, other specified; Y92.018 Other place in single-family (private) house as the place of occurrence of the external cause
CPT/HCPCS: 36415; 71045; 72131; 74176; 80053; 81003; 82962; 83605; 84145; 84484; 85025; 87040; 87077; 87086; 87186; 87426; 93005; 96365; 96366; 96367; 96375; 99291; J1580; J1885; J1956; J2405; J7030; J7050

== ENCOUNTER 2021-11-17 12:40 | Emergency (ER) | payer OTHER ==
[~2021-11-17] VITALS: Ht 162.6 cm; Wt 91.0 kg
[2021-11-17] MEDS ORDERED: ONDANSETRON HCL 4MG/2ML INJ IV ONE (14:15)
[2021-11-17] MEDS ORDERED: ONDANSETRON 4MG ODT PO ONE (14:30)
[2021-11-17 14:49] LABS: CLARITY URINE TURBID (CLEAR); COLOR URINE YELLOW (YELLOW); KETONES URINE NEGATIVE (NEGATIVE); LEUKOCYTE ESTERASE URINE 3+ (NEGATIVE); NITRITE URINE POSITIVE (NEGATIVE); OCCULT BLOOD URINE 1+ (NEGATIVE); PH URINE 5.5 (4.5-8.0); PROTEIN URINE 1+ (NEGATIVE); SPECIFIC GRAVITY URINE 1.008 (1.005-1.030); UROBILINOGEN URINE 0.2 E.U./dL (0.2-1.0)
[2021-11-17 15:35] LABS: *BENZODIAZEPINES SCREEN URINE NEGATIVE (NEGATIVE); *COCAINE SCREEN URINE NEGATIVE (NEGATIVE); METHADONE URINE SCREEN NEGATIVE (NEGATIVE)
[2021-11-17 15:36] LABS: *AMPHETAMINES SCREEN URINE NEGATIVE (NEGATIVE); *BARBITURATES SCREEN URINE NEGATIVE (NEGATIVE); CANNABINOID URINE SCREEN NEGATIVE (NEGATIVE); OPIATES URINE SCREEN NEGATIVE (NEGATIVE); PHENCYCLIDINE URINE SCREEN NEGATIVE (NEGATIVE)
[2021-11-17 15:40] LABS: BASOPHILS % 0.3 % (0.0-2.0); EOSINOPHILS % 1.9 % (0.0-5.0); HEMOGLOBIN. 10.2 g/dL (12.0-16.0); LYMPHOCYTES % 14.5 % (20.0-50.0); MEAN CORPUSCULAR HEMOGLOBIN 29.3 pg (28.0-32.0); MEAN CORPUSCULAR VOLUME 89.3 fL (81.0-99.0); MEAN PLATELET VOLUME 9.3 fl (7.4-10.4); NEUTROPHILS % 74.3 % (40.0-76.0); PLATELET 224 x1000/uL (130-400); RED BLOOD CELL COUNT 3.47 mill/uL (4.2-5.4); RED CELL DISTRIBUTION WIDTH 17.8 % (11.6-14.6)
[2021-11-17 15:45] LABS: CHLORIDE 108 mEq/L (98-107)
[2021-11-17] MEDS ORDERED: CEFTRIAXONE SODIUM 1 G/VIAL IM ONE (15:45)
[2021-11-17 15:47] LABS: HCG SCREEN NEGATIVE
[2021-11-17 16:04] LABS: ETHANOL BLOOD < 10 mg/dL
[2021-11-17] MEDS ORDERED: CEFP200T13 MT (16:51)
[2021-11-17 18:25] VITALS: BP 137/60
== END 2021-11-17 18:37 | disposition home or self-care (01) ==
LOC: ER 12:52
DX: R11.2 Nausea with vomiting, unspecified (principal); I10 Essential (primary) hypertension; E78.00 Pure hypercholesterolemia, unspecified; E11.9 Type 2 diabetes mellitus without complications; Z88.0 Allergy status to penicillin; Z88.2 Allergy status to sulfonamides; Z88.6 Allergy status to analgesic agent; Z88.5 Allergy status to narcotic agent; Z91.018 Allergy to other foods; Z79.899 Other long term (current) drug therapy; Z90.49 Acquired absence of other specified parts of digestive tract; Z86.73 Personal history of transient ischemic attack (TIA), and cerebral infarction without residual deficits
CPT/HCPCS: 36415; 71045; 80053; 80305; 80307; 80320; 80329; 81003; 82140; 83690; 84703; 85025; 87086; 96372; 99284; J0696; Q0162; G0480

== ENCOUNTER 2021-11-20 11:01 | Emergency (ER) | payer OTHER ==
[~2021-11-20] VITALS: Ht 165.1 cm; Wt 91.0 kg
[~2021-11-20 11:01] MED LIST changes: +CEFP200T13 MT
[2021-11-20] MEDS ORDERED: ONDANSETRON HCL 4MG/2ML INJ IV STA (11:15)
[2021-11-20] MEDS ORDERED: SODIUM CHLORIDE 0.9% 1,000 ML IV ONE (11:15)
[2021-11-20 11:38] LABS: CLARITY URINE CLEAR (CLEAR); COLOR URINE YELLOW (YELLOW); KETONES URINE NEGATIVE (NEGATIVE); LEUKOCYTE ESTERASE URINE 1+ (NEGATIVE); NITRITE URINE NEGATIVE (NEGATIVE); OCCULT BLOOD URINE NEGATIVE (NEGATIVE); PH URINE 8.5 (4.5-8.0); PROTEIN URINE NEGATIVE (NEGATIVE); SPECIFIC GRAVITY URINE 1.007 (1.005-1.030); UROBILINOGEN URINE 0.2 E.U./dL (0.2-1.0)
[2021-11-20 11:49] LABS: BASOPHILS % 0.4 % (0.0-2.0); EOSINOPHILS % 3.1 % (0.0-5.0); HEMATOCRIT. 36.4 % (36.0-48.0); LYMPHOCYTES % 17.4 % (20.0-50.0); MEAN CORPUSCULAR HEMOGLOBIN 29.6 pg (28.0-32.0); MEAN CORPUSCULAR VOLUME 90.1 fL (81.0-99.0); MONOCYTES % 9.3 % (2.0-8.0); NEUTROPHILS % 69.8 % (40.0-76.0); RED BLOOD CELL COUNT 4.04 mill/uL (4.2-5.4); RED CELL DISTRIBUTION WIDTH 17.5 % (11.6-14.6)
[2021-11-20 12:00] LABS: CHLORIDE 104 mEq/L (98-107)
[2021-11-20 12:04] LABS: ETHANOL BLOOD < 10 mg/dL
[2021-11-20 12:08] LABS: *AMPHETAMINES SCREEN URINE NEGATIVE (NEGATIVE)
[2021-11-20 12:08] LABS: HCG SCREEN NEGATIVE
[2021-11-20 12:09] LABS: *BARBITURATES SCREEN URINE NEGATIVE (NEGATIVE); *BENZODIAZEPINES SCREEN URINE NEGATIVE (NEGATIVE); *COCAINE SCREEN URINE NEGATIVE (NEGATIVE); CANNABINOID URINE SCREEN NEGATIVE (NEGATIVE); METHADONE URINE SCREEN NEGATIVE (NEGATIVE); OPIATES URINE SCREEN NEGATIVE (NEGATIVE); PHENCYCLIDINE URINE SCREEN NEGATIVE (NEGATIVE)
[2021-11-20] MEDS ORDERED: SODIUM CHLORIDE 0.9% 1000ML BAG (SEPSIS BOLUS) IV ONE (12:15)
[2021-11-20] MEDS ORDERED: LEVOFLOXACIN 500MG PREMIX 100 ML IV ONE (12:15)
[2021-11-20 12:33] LABS: PLATELET 245 x1000/uL (130-400)
[2021-11-20] MEDS ORDERED: LORAZEPAM 2MG/ML CPJ IM ONE (14:45)
[2021-11-20] MEDS ORDERED: IOHEXOL-300 100 ML BOTTLE ONE (17:56)
[2021-11-20 18:00] VITALS: BP 189/62
== END 2021-11-20 21:00 ==
LOC: ER 11:01
DX: A41.9 Sepsis, unspecified organism (principal); N39.0 Urinary tract infection, site not specified; G93.40 Encephalopathy, unspecified; E11.9 Type 2 diabetes mellitus without complications; E78.00 Pure hypercholesterolemia, unspecified; Z86.73 Personal history of transient ischemic attack (TIA), and cerebral infarction without residual deficits; Z87.440 Personal history of urinary (tract) infections; Z90.49 Acquired absence of other specified parts of digestive tract; Z79.899 Other long term (current) drug therapy; Z20.822 Contact with and (suspected) exposure to COVID-19
CPT/HCPCS: 36415; 70450; 71045; 74177; 80053; 80305; 80320; 81003; 82140; 83605; 83690; 84145; 84484; 84703; 85025; 87040; 87426; 93005; 96361; 96365; 96372; 99291; J1956; J2060; J7030; Q9967; G0480

== ENCOUNTER 2022-08-20 19:03 | Emergency (ER) | payer OTHER ==
[~2022-08-20] VITALS: Ht 165.1 cm; Wt 90.4 kg
[~2022-08-20 19:03] MED LIST changes: +LEVO-65 MT; -LEVO500T89 MT; +POTA-205 PO; -POTA20TA82 PO
[2022-08-20 20:12] LABS: BASOPHILS % 0.3 % (0.0-2.0); EOSINOPHILS % 1.8 % (0.0-5.0); HEMOGLOBIN. 12.9 g/dL (12.0-16.0); LYMPHOCYTES % 25.8 % (20.0-50.0); MEAN CORPUSCULAR HEMOGLOBIN 31.1 pg (28.0-32.0); MEAN CORPUSCULAR VOLUME 91.4 fL (81.0-99.0); NEUTROPHILS % 64.1 % (40.0-76.0); PLATELET 149 x1000/uL (130-400); RED BLOOD CELL COUNT 4.16 mill/uL (4.2-5.4); RED CELL DISTRIBUTION WIDTH 15.1 % (11.6-14.6)
[2022-08-20 20:17] LABS: CHLORIDE 104 mEq/L (98-107)
[2022-08-20 20:20] LABS: PROTHROMBIN TIME 10.3 sec (9.6-11.0)
[2022-08-20 20:29] LABS: ETHANOL BLOOD < 10 mg/dL
[2022-08-20] MEDS ORDERED: ASPIRIN 81MG TABLET PO ONE (20:45)
[2022-08-20] MEDS ORDERED: IOHEXOL-350 100 ML BOTTLE ONE (23:13)
[2022-08-20 23:27] LABS: CLARITY URINE CLOUDY (CLEAR); COLOR URINE YELLOW (YELLOW); KETONES URINE NEGATIVE (NEGATIVE); LEUKOCYTE ESTERASE URINE 2+ (NEGATIVE); NITRITE URINE POSITIVE (NEGATIVE); OCCULT BLOOD URINE 2+ (NEGATIVE); PROTEIN URINE NEGATIVE (NEGATIVE); SPECIFIC GRAVITY URINE 1.026 (1.005-1.030); UROBILINOGEN URINE 0.2 E.U./dL (0.2-1.0)
[2022-08-20 23:41] LABS: *AMPHETAMINES SCREEN URINE NEGATIVE (NEGATIVE); *BARBITURATES SCREEN URINE NEGATIVE (NEGATIVE); *BENZODIAZEPINES SCREEN URINE NEGATIVE (NEGATIVE); *COCAINE SCREEN URINE NEGATIVE (NEGATIVE); CANNABINOID URINE SCREEN NEGATIVE (NEGATIVE); METHADONE URINE SCREEN NEGATIVE (NEGATIVE); OPIATES URINE SCREEN NEGATIVE (NEGATIVE); PHENCYCLIDINE URINE SCREEN NEGATIVE (NEGATIVE)
[2022-08-21 00:05] VITALS: BP 170/58
[2022-08-21] MEDS ORDERED: ACETAMINOPHEN 325MG TABLET PO ONE (00:30)
== END 2022-08-21 00:23 | disposition short-term general hospital (02) ==
LOC: ER 19:03
DX: I63.9 Cerebral infarction, unspecified (principal); I10 Essential (primary) hypertension; E11.9 Type 2 diabetes mellitus without complications; E78.00 Pure hypercholesterolemia, unspecified; Z88.6 Allergy status to analgesic agent; Z88.2 Allergy status to sulfonamides; Z88.0 Allergy status to penicillin; Z91.018 Allergy to other foods; Z79.899 Other long term (current) drug therapy; Z90.49 Acquired absence of other specified parts of digestive tract; Z86.73 Personal history of transient ischemic attack (TIA), and cerebral infarction without residual deficits
CPT/HCPCS: 36415; 70450; 70496; 70498; 71045; 80053; 80305; 80320; 81003; 82962; 84484; 85025; 85610; 86850; 86900; 86901; 87426; 93005; 99291; C9803; Q9967; G0480

== ENCOUNTER 2023-09-14 14:54 | Emergency (ER) | payer OTHER ==
[~2023-09-14] VITALS: Ht 162.6 cm; Wt 90.0 kg
[~2023-09-14 14:54] MED LIST changes: -CLON-457 PO; +CLON-493 PO
[2023-09-14 15:27] VITALS: O2SAT 98
[2023-09-14] MEDS ORDERED: KETOROLAC 60MG/2ML VIAL IM ONE (19:15)
[2023-09-14 20:20] VITALS: BP 194/77; PULSE 99; RESP 18
[2023-09-14] MEDS ORDERED: ACETAMINOPHEN 500MG TABLET PO ONE (21:30)
[2023-09-14 22:14] VITALS: TEMP 98.6
[2023-09-14] MEDS ORDERED: TOPUD MT (22:15)
[2023-09-14] MEDS ORDERED: IBUP-2028 MT (22:18)
== END 2023-09-14 22:40 | disposition home or self-care (01) ==
LOC: ER 14:54
DX: M25.512 Pain in left shoulder (principal); M25.511 Pain in right shoulder; M54.2 Cervicalgia; I10 Essential (primary) hypertension; E11.9 Type 2 diabetes mellitus without complications; E78.00 Pure hypercholesterolemia, unspecified; Z88.2 Allergy status to sulfonamides; Z88.0 Allergy status to penicillin; Z88.5 Allergy status to narcotic agent; Z88.6 Allergy status to analgesic agent; Z79.899 Other long term (current) drug therapy; Z91.018 Allergy to other foods; Z86.73 Personal history of transient ischemic attack (TIA), and cerebral infarction without residual deficits; Z90.49 Acquired absence of other specified parts of digestive tract; V49.9XXA Car occupant (driver) (passenger) injured in unspecified traffic accident, initial encounter; Y93.89 Activity, other specified; Y92.89 Other specified places as the place of occurrence of the external cause; Y99.8 Other external cause status
CPT/HCPCS: 99285; 72125; 73030; 96372; J1885